=== PATIENT | female | born 1970 | race Caucasian/White ===

== ENCOUNTER 2017-09-26 12:32 | Observation (INO) ==
[2017-09-26] MEDS ORDERED: Nitroglycerin 0.4 MG TAB.SUBL SL ONE (12:33)
[2017-09-26] MEDS ORDERED: 0.9 % Sodium Chloride 500 ML IVC ONE (12:33)
[2017-09-26] MEDS ORDERED: Aspirin 81 MG TAB.CHEW PO ONE (12:33)
--- NOTE | 2017-09-26 12:34 | Emergency Department Note ---
Disposition Clinical Impression: NSTEMI (non-ST elevated myocardial infarction), Elevated troponin Disposition: Admitted As Inpatient Condition: Fair General Adult HPI - General Chief complaint: ED Chest Pain Stated complaint: chest pain Time Seen by Provider: 09/26/17 12:33 - Related Data Home Medications Medication Instructions Recorded Confirmed Albuterol Sulfate [Albuterol 2 puff IH Q4HR PRN 08/22/16 09/26/17 Inhaler] Calcium Carbonate/Vitamin D3 1 tab PO BID 08/22/16 09/26/17 [Oyster Shell Calcium-Vit D Tab] Fluticasone Propionate Nasal 1 spr NS BID PRN 08/22/16 09/26/17 [Flonase] Insulin ASPART [Novolog Flexpen] 5 - 10 unit SQ TID PRN 08/22/16 09/26/17 Multivit-Min/FA/Lycopen/Lutein 1 each PO DAILY 08/22/16 09/26/17 [Centrum Silver Tablet] Paroxetine HCl 10 mg PO QAM 08/22/16 09/26/17 Potassium Chloride 10 meq PO DAILY 08/22/16 09/26/17 SUMAtriptan Succinate [Imitrex] 100 mg PO DAILY PRN 08/22/16 09/26/17 Topiramate [Topamax] 25 mg PO HS 08/22/16 09/26/17 TraZODone 50 mg PO HS 08/22/16 09/26/17 Insulin Glargine,Hum.rec.anlog 18 - 20 unit SQ HS PRN 11/05/16 09/26/17 [Basaglar Kwikpen U-100] Losartan/HCTZ [Hyzaar 50-12.5 1 tab PO DAILY 11/05/16 09/26/17 Tablet] Aspirin 81 mg PO DAILY 07/29/17 09/26/17 Ergocalciferol (VITAMIN D2) 50,000 unit PO WE 07/29/17 09/26/17 [Vitamin D2] Furosemide [Lasix] 20 mg PO BID 07/29/17 09/26/17 Loratadine [Allergy Relief] 10 mg PO DAILY PRN 07/29/17 09/26/17 OxyCODONE/APAP 10/325 [Percocet 1 tab PO TID PRN 07/29/17 09/26/17 10/325 MG] Pantoprazole Sodium 40 mg PO BID 07/29/17 09/26/17 Apixaban [Eliquis] 5 mg PO BID 09/26/17 09/26/17 Allergies Allergy/AdvReac Type Severity Reaction Status Date / Time [place] And Derivatives Allergy Hives Verified 09/26/17 15:49 gabapentin Allergy Swelling Verified 09/26/17 15:49 of Lip/Tongue/Throat hydrocodone Allergy Hives Verified 09/26/17 15:49 levofloxacin [From Levaquin] Allergy Anaphylaxis Verified 09/26/17 15:49 lisinopril Allergy Hives Verified 09/26/17 15:49 propoxyphene Allergy Hives Verified 09/26/17 15:49 [From Darvocet-N] Sulfa (Sulfonamide Allergy Hives Verified 09/26/17 15:49 Antibiotics) duloxetine [From Cymbalta] AdvReac Hallucinati Verified 09/26/17 15:49 ng lactose AdvReac Abdominal Verified 09/26/17 15:49 Pain Past Medical History - Past Medical History Medical history: Reports: diabetes, fibromyalgia, GERD, hypertension Surgical history: Reports: cholecystectomy, hysterectomy Psychiatric history: Reports: anxiety, depression, PTSD - Social History Smoking Status: Never smoker Smokeless Tobacco Status: No Alcohol use: Reports: rarely Drug use: Reports: none Course Vital Signs Temperature 97.6 F 09/26/17 12:34 Pulse Rate 69 09/26/17 12:34 Respiratory Rate 10 09/26/17 12:34 Blood Pressure 122/69 09/26/17 12:34 O2 Sat by Pulse Oximetry 96 09/26/17 12:34 Temperature 97.6 F 09/26/17 12:34 Pulse Rate 67 09/26/17 15:50 Respiratory Rate 14 09/26/17 15:50 Blood Pressure 90/56 09/26/17 15:50 O2 Sat by Pulse Oximetry 94 09/26/17 15:50 Oxygen Delivery Oxygen Delivery Room Air Medical Decision Making - Lab Data Result diagrams: 09/26/17 12:52 09/26/17 12:52 Lab Results 09/26/17 09/26/17 09/26/17 Range/Units 12:52 12:52 12:52 WBC 11.0 (4.3-11.1) K/mcL RBC 4.63 (3.82-4.97) M/mcL Hgb 13.8 (11.5-15.4) g/dL Hct 42.9 (35.3-44.9) % MCV 92.7 (83.0-100.0) fL MCH 29.8 (28.0-33.3) pg MCHC 32.2 (31.6-35.5) g/dL RDW 13.5 (11.5-14.5) % Plt Count 277 (140-400) K/mcL MPV 10.3 (9.4-12.4) fL Immature Gran % 0.5 (0-4) % Seg Neutrophils % 82.7 % Lymphocytes % 11.2 % Monocytes % 4.8 % Eosinophils % 0.3 % Basophils % 0.5 % Neutrophils # 9.1 H (1.6-8.9) K/mcL Lymphocytes # 1.2 (0.6-4.6) K/mcL Monocytes # 0.5 (0.0-1.3) K/mcL Eosinophils # 0.0 (0.0-0.6) K/mcL Basophils # 0.1 (0.0-0.2) K/mcL PT 11.2 (9.4-12.1) Seconds INR 1.0 APTT 29.0 (26.0-36.0) Seconds Sodium 137 (136-145) mEq/L Potassium 4.2 (3.5-5.1) mEq/L Chloride 103 (98-107) mEq/L Carbon Dioxide 29 (23-29) mEq/L BUN 14 (6-20) mg/dL Creatinine 0.74 (0.60-1.20) mg/dL Est GFR ( Amer) > 60 (> 60) Est GFR (Non-Af Amer) > 60 (> 60) BUN/Creatinine Ratio 19 (6-26) Glucose 108 H (70-105) mg/dL Calculated Osmolality 285 (280-300) Calcium 9.1 (8.6-10.3) mg/dL Troponin I (< 0.04) ng/mL 09/26/17 09/26/17 Range/Units 12:52 14:28 WBC (4.3-11.1) K/mcL RBC (3.82-4.97) M/mcL Hgb (11.5-15.4) g/dL Hct (35.3-44.9) % MCV (83.0-100.0) fL MCH (28.0-33.3) pg MCHC (31.6-35.5) g/dL RDW (11.5-14.5) % Plt Count (140-400) K/mcL MPV (9.4-12.4) fL Immature Gran % (0-4) % Seg Neutrophils % % Lymphocytes % % Monocytes % % Eosinophils % % Basophils % % Neutrophils # (1.6-8.9) K/mcL Lymphocytes # (0.6-4.6) K/mcL Monocytes # (0.0-1.3) K/mcL Eosinophils # (0.0-0.6) K/mcL Basophils # (0.0-0.2) K/mcL PT (9.4-12.1) Seconds INR APTT (26.0-36.0) Seconds Sodium (136-145) mEq/L Potassium (3.5-5.1) mEq/L Chloride (98-107) mEq/L Carbon Dioxide (23-29) mEq/L BUN (6-20) mg/dL Creatinine (0.60-1.20) mg/dL Est GFR ( Amer) (> 60) Est GFR (Non-Af Amer) (> 60) BUN/Creatinine Ratio (6-26) Glucose (70-105) mg/dL Calculated Osmolality (280-300) Calcium (8.6-10.3) mg/dL Troponin I < 0.03 0.10 H* (< 0.04) ng/mL Attestation Statement - Attestation Attestation: I examined this patient and my medical decision-making was reviewed with the Resident Physician. I agree with the documented findings, disposition and treatment plan as described except to the extent set forth below. [id number] time provided Patient arrives by EMS from home complaining of nausea, vomiting, diarrhea, chest discomfort. She appears slightly anxious on exam. I discussed the patient's care and management with the resident physician Dr. Artis. ECG reviewed by me upon arrival
[2017-09-26 12:58] LABS: Basophils # 0.1 K/mcL (0.0-0.2); Basophils % 0.5 %; Eosinophils % 0.3 %; Hematocrit 42.9 % (35.3-44.9); Hemoglobin 13.8 g/dL (11.5-15.4); Immature Granulocytes % 0.5 % (0-4); Lymphocytes # 1.2 K/mcL (0.6-4.6); Lymphocytes % 11.2 %; Mean Corpuscular HGB Conc 32.2 g/dL (31.6-35.5); Mean Corpuscular Hemoglobin 29.8 pg (28.0-33.3); Mean Corpuscular Volume 92.7 fL (83.0-100.0); Mean Platelet Volume 10.3 fL (9.4-12.4); Monocytes # 0.5 K/mcL (0.0-1.3); Monocytes % 4.8 %; Neutrophils # 9.1 K/mcL (1.6-8.9); Platelet Count 277 K/mcL (140-400); Red Blood Count 4.63 M/mcL (3.82-4.97); Red Cell Distribution Width 13.5 % (11.5-14.5); Segmented Neutrophils % 82.7 %
[2017-09-26 13:03] LABS: Prothrombin Time 11.2 Seconds (9.4-12.1)
[2017-09-26 13:16] LABS: BUN/Creatinine Ratio 19 (6-26); Blood Urea Nitrogen 14 mg/dL (6-20); Calcium 9.1 mg/dL (8.6-10.3); Carbon Dioxide 29 mEq/L (23-29); Chloride 103 mEq/L (98-107); Glucose 108 mg/dL (70-105); Osmolality,Calculated 285 (280-300); Potassium 4.2 mEq/L (3.5-5.1); Sodium 137 mEq/L (136-145); eGFR For African Americans > 60 (> 60); eGFR For Non-African Americans > 60 (> 60)
--- NOTE | 2017-09-26 13:18 | Emergency Department Note ---
Disposition Clinical Impression: NSTEMI (non-ST elevated myocardial infarction), Elevated troponin Disposition: Admitted As Inpatient Condition: Fair Forms: ED Satisfaction Letter Time of Disposition: 16:41 Chest Pain HPI - General Chief Complaint: ED Chest Pain Stated Complaint: chest pain Time Seen by Provider: 09/26/17 12:33 Source: patient, EMS Mode of arrival: EMS Limitations: no limitations Vital Signs Reviewed: Yes Nursing Notes Reviewed: Yes - History of Present Illness HPI Narrative: 47-year-old female presented to the emergency department complaining of chest pain. She says it is substernal says it is a 5 out of 10 pressure. Says she has never had this pain before. Patient has a history anxiety and says normally the chest pain is due to anxiety. She has never had any cardiac issues. She does have history of diabetes as well as high blood pressure. They said the chest pain started all of a sudden this morning. She has not taken anything for the pain. She did not know she was doing anything when the pain started. Is not worse with exertion. Patient is not having any other complaints including headache, blurry vision, neck pain, back pain, shortness of breath, abdominal pain, change in balance, pain with urination, pain feeling in any arms or legs or generalized weakness or any changes in weight loss. - Related Data Home Medications Medication Instructions Recorded Confirmed Albuterol Sulfate [Albuterol 2 puff IH Q4HR PRN 08/22/16 07/29/17 Inhaler] Calcium Carbonate/Vitamin D3 1 each PO BID 08/22/16 07/29/17 [Oyster Shell Calcium-Vit D Tab] Fluticasone Propionate Nasal 1 spr NS BID PRN 08/22/16 07/29/17 [Flonase] Insulin ASPART [Novolog Flexpen] 5 - 7 unit SQ TID PRN 08/22/16 07/29/17 Multivit-Min/FA/Lycopen/Lutein 1 each PO DAILY 08/22/16 07/29/17 [Centrum Silver Tablet] Paroxetine HCl 10 mg PO QAM 08/22/16 07/29/17 Potassium Chloride 10 meq PO DAILY 08/22/16 07/29/17 SUMAtriptan Succinate [Imitrex] 100 mg PO DAILY PRN 08/22/16 07/29/17 Topiramate [Topamax] 25 mg PO HS 08/22/16 07/29/17 TraZODone 50 mg PO HS 08/22/16 07/29/17 Insulin Glargine,Hum.rec.anlog 0 unit SQ HS PRN 11/05/16 07/29/17 [Basaglar Kwikpen U-100] Losartan/HCTZ [Hyzaar 50-12.5 1 tab PO DAILY 11/05/16 07/29/17 Tablet] Aspirin 81 mg PO DAILY 07/29/17 07/29/17 Ergocalciferol (VITAMIN D2) 50,000 unit PO WE 07/29/17 07/29/17 [Vitamin D2] Furosemide [Lasix] 20 mg PO BID 07/29/17 07/29/17 Loratadine [Allergy Relief] 10 mg PO DAILY PRN 07/29/17 07/29/17 OxyCODONE/APAP 10/325 [Percocet 1 tab PO TID PRN 07/29/17 07/29/17 10/325 MG] Pantoprazole Sodium 40 mg PO BID 07/29/17 07/29/17 Apixaban [Eliquis] 5 mg PO BID 09/26/17 09/26/17 Allergies Allergy/AdvReac Type Severity Reaction Status Date / Time [place] And Derivatives Allergy Hives Verified 09/26/17 15:49 gabapentin Allergy Swelling Verified 09/26/17 15:49 of Lip/Tongue/Throat hydrocodone Allergy Hives Verified 09/26/17 15:49 levofloxacin [From Levaquin] Allergy Anaphylaxis Verified 09/26/17 15:49 lisinopril Allergy Hives Verified 09/26/17 15:49 propoxyphene Allergy Hives Verified 09/26/17 15:49 [From Darvocet-N] Sulfa (Sulfonamide Allergy Hives Verified 09/26/17 15:49 Antibiotics) duloxetine [From Cymbalta] AdvReac Hallucinati Verified 09/26/17 15:49 ng lactose AdvReac Abdominal Verified 09/26/17 15:49 Pain Review of Systems: 10 point review of systems done and negative unless otherwise stated in history of present illness. All systems ED: reviewed and negative except as stated. Review of Systems: As Per HPI Chest Pain PMH - Past Medical History Medical history: Reports: diabetes, fibromyalgia, GERD, hypertension Surgical history: Reports: cholecystectomy, hysterectomy Psychiatric history: Reports: anxiety, depression, PTSD - Social History Smoking Status: Never smoker Alcohol use: Reports: rarely Drug use: Reports: none Physical Exam - General Limitations: no limitations General appearance: alert, in no apparent distress, anxious - Head Head exam: atraumatic, normocephalic, normal inspection - Eye Eye exam: Present: normal appearance, PERRL, EOMI - ENT ENT exam: normal exam, normal oropharynx, mucous membranes moist - Neck Neck exam: Present: normal inspection, full ROM, trachea midline - Chest Chest inspection: Present: normal inspection, symmetric chest wall rise - Respiratory Respiratory exam: Present: normal lung sounds bilaterally. Absent: respiratory distress, wheezes, accessory muscle use - Cardiovascular Cardiovascular exam: Present: regular rate, normal rhythm, normal heart sounds - Abdominal Exam Abdominal exam: Present: soft, Non-Tender. Absent: tenderness, distention, guarding, rebound, rigidity - Extremities Exam Extremities exam: Present: normal inspection, full ROM. Absent: tenderness, pedal edema - Expanded Lower Extremity Exam Neurovascular/Tendon exam: Present: normal capillary refill. Absent: pulse deficit, motor deficit, sensory deficit, tendon deficit - Back Exam Back exam: Present: normal inspection, full ROM. Absent: tenderness, CVA tenderness (R), CVA tenderness (L) - Neurological Exam Neurological exam: Present: alert, oriented X3 - Skin Skin exam: Present: warm, dry, intact, normal color Course Course Narrative: 47-year-old female presents to the emergency with chest pain. We will do normal chest pain workup including CBC, BMP, troponin as well as chest x-ray and EKG. We will give patient nitroglycerin and aspirin. Patient care of this plan. Disposition pending results. Most likely will repeat a troponin. Vital Signs Temperature 97.6 F 09/26/17 12:34 Pulse Rate 69 09/26/17 12:34 Respiratory Rate 10 09/26/17 12:34 Blood Pressure 122/69 09/26/17 12:34 O2 Sat by Pulse Oximetry 96 09/26/17 12:34 Temperature 97.6 F 09/26/17 12:34 Pulse Rate 67 09/26/17 15:50 Respiratory Rate 14 09/26/17 15:50 Blood Pressure 90/56 09/26/17 15:50 O2 Sat by Pulse Oximetry 94 09/26/17 15:50 Oxygen Delivery Oxygen Delivery Room Air Chest Pain - MDM Narrative Medical decision making narrative: 47-year-old female presenting to the emergency department with chest pain. Patient does have risk factors for cardiac disease but has not had any cardiac events recently. She says a muscular chest pain is due to anxiety and she is wondering if that this is very we did do a chest pain workup first troponin came back negative and all her labs came back normal. First EKG had mild changes were she had flattening of T waves and inversion in lead 3. Otherwise there are no other acute changes on EKG. We did do a repeat troponin 2 hours after the original one and this came back positive at 0.10. Due to going outpatient echo he is in an NSTEMI. We did give her low-dose heparin and she was given aspirin and nitroglycerin when she first arrived. Patient tolerated all these well. Due to the NSTEMI we decided to admit to the hospitalist service for further evaluation. Spoke with the hospitalist, Dr. Goetz who agreed to admit the patient to their service. Patient is admitted in stable condition. Chest X-Ray 09/26/17 12:33 IMPRESSION: No acute cardiopulmonary disease. D/ / Gabo Arriaga MD / Gabo Arriaga MD Interpreting Provider: Gabo Arriaga MD - Medical Records Medical records reviewed: Yes I reviewed the patient's medical records. - Lab Data Lab results reviewed: Yes I reviewed the patient's lab results. Result diagrams: 09/26/17 12:52 09/26/17 12:52 Lab Results 09/26/17 09/26/17 09/26/17 Range/Units 12:52 12:52 12:52 WBC 11.0 (4.3-11.1) K/mcL RBC 4.63 (3.82-4.97) M/mcL Hgb 13.8 (11.5-15.4) g/dL Hct 42.9 (35.3-44.9) % MCV 92.7 (83.0-100.0) fL MCH 29.8 (28.0-33.3) pg MCHC 32.2 (31.6-35.5) g/dL RDW 13.5 (11.5-14.5) % Plt Count 277 (140-400) K/mcL MPV 10.3 (9.4-12.4) fL Immature Gran % 0.5 (0-4) % Seg Neutrophils % 82.7 % Lymphocytes % 11.2 % Monocytes % 4.8 % Eosinophils % 0.3 % Basophils % 0.5 % Neutrophils # 9.1 H (1.6-8.9) K/mcL Lymphocytes # 1.2 (0.6-4.6) K/mcL Monocytes # 0.5 (0.0-1.3) K/mcL Eosinophils # 0.0 (0.0-0.6) K/mcL Basophils # 0.1 (0.0-0.2) K/mcL PT 11.2 (9.4-12.1) Seconds INR 1.0 APTT 29.0 (26.0-36.0) Seconds Sodium 137 (136-145) mEq/L Potassium 4.2 (3.5-5.1) mEq/L Chloride 103 (98-107) mEq/L Carbon Dioxide 29 (23-29) mEq/L BUN 14 (6-20) mg/dL Creatinine 0.74 (0.60-1.20) mg/dL Est GFR ( Amer) > 60 (> 60) Est GFR (Non-Af Amer) > 60 (> 60) BUN/Creatinine Ratio 19 (6-26) Glucose 108 H (70-105) mg/dL Calculated Osmolality 285 (280-300) Calcium 9.1 (8.6-10.3) mg/dL Troponin I (< 0.04) ng/mL 09/26/17 09/26/17 Range/Units 12:52 14:28 WBC (4.3-11.1) K/mcL RBC (3.82-4.97) M/mcL Hgb (11.5-15.4) g/dL Hct (35.3-44.9) % MCV (83.0-100.0) fL MCH (28.0-33.3) pg MCHC (31.6-35.5) g/dL RDW (11.5-14.5) % Plt Count (140-400) K/mcL MPV (9.4-12.4) fL Immature Gran % (0-4) % Seg Neutrophils % % Lymphocytes % % Monocytes % % Eosinophils % % Basophils % % Neutrophils # (1.6-8.9) K/mcL Lymphocytes # (0.6-4.6) K/mcL Monocytes # (0.0-1.3) K/mcL Eosinophils # (0.0-0.6) K/mcL Basophils # (0.0-0.2) K/mcL PT (9.4-12.1) Seconds INR APTT (26.0-36.0) Seconds Sodium (136-145) mEq/L Potassium (3.5-5.1) mEq/L Chloride (98-107) mEq/L Carbon Dioxide (23-29) mEq/L BUN (6-20) mg/dL Creatinine (0.60-1.20) mg/dL Est GFR ( Amer) (> 60) Est GFR (Non-Af Amer) (> 60) BUN/Creatinine Ratio (6-26) Glucose (70-105) mg/dL Calculated Osmolality (280-300) Calcium (8.6-10.3) mg/dL Troponin I < 0.03 0.10 H* (< 0.04) ng/mL - Radiology Data Radiology results reviewed: Yes I reviewed the patient's radiology results. - EKG Data EKG attestation: Yes I reviewed and interpreted this EKG. EKG results narrative: EKG #1 done at 1237 review by myself and the attending shows sinus rhythm at a rate of 61, AL 169, QRS 93, QTC 409 with a normal axis. There is no acute ST changes there are flipped T waves in leads 3 and flattening of T waves in all lateral leads. No signs of heart strain or hypertrophy or signs of heart block or WPW/Brugada syndrome. Overall this EKG is unchanged when compared with old 1 and 08/26/17. EKG #2 done at 1527 due to elevated troponin review of myself and the attending shows sinus rhythm at a rate of 63, AL interval 136, QRS 97, QTC 4:30 with a normal axis. There again is no ST changes no new T-wave changes as her* flattening of T waves and inversion in leads 3. Still no heart block or heart strain or hypertrophy or other changes based on old EKG. Heart Score - Score History: Moderately Suspicious EKG: Non Specific repolarisation Disturbance Age: 45-65 Risk Factors: Equal/Greater than 3 risk factor or history of atherosclerotic disease Troponin: 1-3x normal limit HEART Score Total: 6
[2017-09-26] MEDS ORDERED: *HR* Heparin 5,000 UNIT/ML VIAL IVP ONE ×3 (15:26→16:49)
[2017-09-26] MEDS ORDERED: *HR* Heparin 5,000 UNIT/ML VIAL IVP PRN ×5 (15:26→16:49)
[2017-09-26] MEDS ORDERED: Heparin 25,000 UNIT/500 ML D5W 25,000 UNIT/500 ML BAG IVC SCH ×2 (15:30→16:45)
[2017-09-26] MEDS ORDERED: Ondansetron 4 MG/2 ML VIAL IVP PRN (16:41)
[2017-09-26] MEDS ORDERED: Naloxone 0.4 MG/ML INJ IVP PRN (16:41)
[2017-09-26] MEDS ORDERED: Fluticasone Propionate Nasal 50 MCG/SPRAY BOTTLE NS PRN (16:42)
[2017-09-26] MEDS ORDERED: SUMAtriptan succinate 50 MG TABLET PO PRN (16:42)
[2017-09-26] MEDS ORDERED: Loratadine 10 MG TABLET PO PRN (16:42)
[2017-09-26] MEDS ORDERED: Dextrose Gel 15 GM/37.5 ML TUBE PO PRN ×2 (16:44)
[2017-09-26] MEDS ORDERED: D5% in Water 1,000 ML IVC PRN (16:44)
[2017-09-26] MEDS ORDERED: *HR* Dextrose 50 % in Water (Syg) 50 ML SYRINGE IVP PRN (16:44)
[2017-09-26] MEDS: Heparin 25,000 UNIT/500 ML D5W 25,000 UNIT/500 ML BAG IVC SCH (17:15)
--- NOTE | 2017-09-26 17:58 | Internal Med History&Physical ---
Date of Encounter: 09/26/17 Time of Encounter: 17:56 Assessment and Plan (1) NSTEMI (non-ST elevated myocardial infarction) Current visit: Yes Status: Acute Presentation and labs consistent with NSTEMI. EKG shows nonspecific changes. Repeat unchanged. Cycle troponin. Heparin drip started. NPO midnight Cardiology consult - I have a page out to geographic information systems engineer pigs feet finisher at this time to inform him of her case Due to history of DVT in her leg a CTA of her chest has been ordered to r/o PE Add Statin. ASA. (2) DVT (deep venous thrombosis) Current visit: Yes Status: Chronic Diagnosed 08/10/17 and repeat duplex 08/26/17 shows "chronic thrombus" Currently on heparin drip CTA of chest tonight. Qualifiers: DVT location: lower extremity Affected thrombotic vein of extremity: popliteal Chronicity: chronic Laterality: left Qualified Code(s): I82.532 - Chronic embolism and thrombosis of left popliteal vein (3) Diabetes Current visit: No Status: Chronic Pt relates her last A1C was around 5. Accuchecks and insulin ordered. Qualifiers: Diabetes mellitus type: type 2 Diabetes mellitus complication status: with other specified complication Diabetes mellitus correction insulin use: with correction use Qualified Code(s): E11.69 - Type 2 diabetes mellitus with other specified complication; Z79.4 - long term care social worker (current) use of insulin; Z79.4 - long term care social worker (current) use of insulin; Z79.4 - long term care social worker (current) use of insulin; Z79.4 - long term care social worker (current) use of insulin (4) Hypertension Current visit: No Status: Chronic Continue home medications. Qualifiers: Hypertension type: essential hypertension Qualified Code(s): I10 - Essential (primary) hypertension (5) History of post traumatic stress disorder Current visit: No Status: Chronic Continue home meds. (6) Morbid obesity Current visit: No Status: Chronic Chronic issue Internal Medicine - H&P: HPI Admitted From: Emergency Dept Plans for Post Hospital Care: Home History of present illness: Ms. Orosco is a 47 year old female with hx of DM and HTN presented to ED with complaints of substernal chest pressure. Pt stated she awoke about 8AM with "brick on my chest" and pain radiating down R arm. She had some palpitations in her chest and numb and tingling sensation in her R arm. She also felt diaphoretic and nauseous and "funny in the head." She felt like she was going to pass out. Symptoms ultimately resolved on their own. She presented to ED and had work up which showed nonspecific EKG changes and troponin that went < 0.03 to 0.1 in about 2 hours. Currently she is only complaining of a headache she has had all day. No chest pain or discomfort. No dyspnea. She has gastroparesis as well and chronic diarrhea. She also was diagnosed with acute L popliteal DVT on 08/10/17 and has been taking Eliquis BID. She has significant family hx for CAD- father age 67 of cardiac disease which began in his 50s. Mother has cardiac disease that began in early 50s. Multiple family members with DM. Past Med Surg Social Fam HX - Past Medical History Source: patient Medical history: diabetes, fibromyalgia, GERD, hypertension Psychiatric history: anxiety, depression, PTSD - Past Surgical History Surgical History: cholecystectomy, hysterectomy - Social History Smoking Status: Never smoker Smokeless Tobacco Status: No Alcohol use: rarely Drug use: none Current living situation: Home - Independent Activity Level: Independent ambulation Recent Out of Country Travel Within the Last 8 Weeks: No - Family History Mother Living Status: Still Living Hx Family Cardiac Disorders: Yes (Cardiac disease) Hx Family Endocrine Disorder: Yes (Diabetes) Father Living Status: Cause of : Cardiac disease Hx Family Cardiac Disorders: Yes Hx Family Endocrine Disorder: Yes (Diabetes) Internal Medicine - H&P: Meds Albuterol Sulfate [Albuterol Inhaler] 2 puff IH Q4HR PRN 08/22/16 [History] Calcium Carbonate/Vitamin D3 [Oyster Shell Calcium-Vit D Tab] 1 tab PO BID 08/22 [History] Fluticasone Propionate Nasal [Flonase] 1 spr NS BID PRN 08/22/16 [History] Insulin ASPART [Novolog Flexpen] 5 - 10 unit SQ TID PRN 08/22/16 [History] Multivit-Min/FA/Lycopen/Lutein [Centrum Silver Tablet] 1 each PO DAILY 08/22/16 [History] Paroxetine HCl 10 mg PO QAM 08/22/16 [History] Potassium Chloride 10 meq PO DAILY 08/22/16 [History] SUMAtriptan Succinate [Imitrex] 100 mg PO DAILY PRN 08/22/16 [History] Topiramate [Topamax] 25 mg PO HS 08/22/16 [History] TraZODone 50 mg PO HS 08/22/16 [History] Insulin Glargine,Hum.rec.anlog [Basaglar Kwikpen U-100] 18 - 20 unit SQ HS PRN 11/05/16 [History] Losartan/HCTZ [Hyzaar 50-12.5 Tablet] 1 tab PO DAILY 11/05/16 [History] Aspirin 81 mg PO DAILY 07/29/17 [History] Ergocalciferol (VITAMIN D2) [Vitamin D2] 50,000 unit PO WE 07/29/17 [History] Furosemide [Lasix] 20 mg PO BID 07/29/17 [History] Loratadine [Allergy Relief] 10 mg PO DAILY PRN 07/29/17 [History] OxyCODONE/APAP 10/325 [Percocet 10/325 MG] 1 tab PO TID PRN 07/29/17 [History] Pantoprazole Sodium 40 mg PO BID 07/29/17 [History] Apixaban [Eliquis] 5 mg PO BID 09/26/17 [History] 3 Allergy/AdvReac Type Severity Reaction Status Date / Time [place] And Derivatives Allergy Hives Verified 09/26/17 15:49 gabapentin Allergy Swelling Verified 09/26/17 15:49 of Lip/Tongue/Throat hydrocodone Allergy Hives Verified 09/26/17 15:49 levofloxacin [From Levaquin] Allergy Anaphylaxis Verified 09/26/17 15:49 lisinopril Allergy Hives Verified 09/26/17 15:49 propoxyphene Allergy Hives Verified 09/26/17 15:49 [From Darvocet-N] Sulfa (Sulfonamide Allergy Hives Verified 09/26/17 15:49 Antibiotics) duloxetine [From Cymbalta] AdvReac Hallucinati Verified 09/26/17 15:49 ng lactose AdvReac Abdominal Verified 09/26/17 15:49 Pain All Systems PM: A 10-system review of systems was performed and is negative for pertinent findings except as documented above in the HPI. - Constitutional Constitutional: fatigue - EENT Eyes: no blurry vision, no loss of vision, no pain Ears: no decreased hearing Nose, mouth and throat: no dry mouth, no mouth pain, no nasal congestion - Cardiovascular Cardiovascular ROS IM: chest pain, diaphoresis, dyspnea, edema, palpitations - Respiratory Respiratory: dyspnea, no cough, no dyspnea on exertion, no wheezing, no chest congestion - Gastrointestinal Gastrointestinal: diarrhea, heartburn Additional comments: gastroparesis - Genitourinary Genitourinary: no difficulty urinating, no hematuria, no urinary frequency, no urinary urgency - Musculoskeletal Musculoskeletal ROS IM: joint swelling, limited range of motion - Integumentary Integumentary IM: no erythema, no rash - Neurological Neurological ROS: confusion (Today with episode), dizziness, headache(s), no abnormal hearing - Psychiatric Psychiatric: anxiety, depression - Endocrine Endocrine IM: no cold intolerance, no heat intolerance - Hematologic/Lymphatic Hematologic/Lymphatic: no easy bleeding - Allergic/Immunologic Allergic/Immunologic: no itchy eyes - Constitutional Vitals: Temp Pulse Resp BP Pulse Ox 97.6 F 67 16 123/70 94 09/26/17 12:34 09/26/17 15:50 09/26/17 17:24 09/26/17 17:24 09/26/17 15:50 General appearance: Present: A&O X 3, pleasant, answers questions appropriately - Head Head exam: Present: atraumatic, normocephalic - Eye Eye exam: Present: EOMI, conjuntiva pink Pupils: Present: PERRL - ENT ENT exam: Present: mucous membranes moist, normal exam - Respiratory Respiratory exam: Present: CTAB. Absent: rales, rhonchi, wheezes - Cardiovascular Cardiovascular exam: Present: RRR. Absent: systolic murmur, tachycardia - GI/Abdominal GI/Abdominal exam: Present: normal bowel sounds, soft. Absent: mass, tenderness - Extremities Exam Extremities exam: Present: tenderness, warm Additional comments: Trace edema R. Edema LLE c/w prior DVT. - Neurological Exam Neurological exam: Present: alert, oriented X3, no focal deficits - Psychiatric Psychiatric exam: Present: flat affect - Skin Skin exam: Present: dry, warm. Absent: rash Internal Med - H&P Results - Labs CBC & Chem 7: 09/26/17 12:52 09/26/17 12:52
[2017-09-26] MEDS: Insulin LISPRO 300 UNITS/3 ML VIAL SQ SCH ×2 (20:12→21:44)
[2017-09-26] MEDS ORDERED: NON-FORMULARY MEDICATION 1 EACH EACH (Calcium Carbonate/Vitamin D3 [Oyster Shell Calcium-V PO SCH (21:00)
[2017-09-26] MEDS: Topiramate 25 MG TABLET PO SCH (21:42)
[2017-09-26] MEDS: Furosemide 20 MG TABLET PO SCH (21:42)
[2017-09-26] MEDS: traZODone 50 MG TABLET PO SCH (21:42)
[2017-09-26] MEDS: Cholecalciferol (D-3) 1,000 UNIT TABLET PO SCH (21:43)
[2017-09-26] MEDS: *HR* OxyCODONE/APAP 10/325 TABLET PO PRN (21:44)
[2017-09-26] MEDS: Insulin DETEMIR 100 UNIT/ML X5UNITS SQ SCH (21:44)
[2017-09-27] MEDS: *HR* Heparin 5,000 UNIT/ML VIAL IVP PRN (01:31)
[2017-09-27 03:57] LABS: Hemoglobin A1C 4.9 %
[2017-09-27 04:07] LABS: Chol/HDL Ratio 4.1 (0-4.9)
[2017-09-27 04:09] LABS: BUN/Creatinine Ratio 17 (6-26); Blood Urea Nitrogen 14 mg/dL (6-20); Calcium 8.9 mg/dL (8.6-10.3); Carbon Dioxide 30 mEq/L (23-29); Chloride 102 mEq/L (98-107); Glucose 104 mg/dL (70-105); Osmolality,Calculated 287 (280-300); Potassium 3.5 mEq/L (3.5-5.1); Sodium 138 mEq/L (136-145); eGFR For African Americans > 60 (> 60); eGFR For Non-African Americans > 60 (> 60)
[2017-09-27 04:17] LABS: Basophils # 0.1 K/mcL (0.0-0.2); Basophils % 0.5 %; Eosinophils # 0.1 K/mcL (0.0-0.6); Eosinophils % 1.2 %; Hematocrit 39.6 % (35.3-44.9); Hemoglobin 12.7 g/dL (11.5-15.4); Immature Granulocytes % 0.6 % (0-4); Lymphocytes % 28.6 %; Mean Corpuscular HGB Conc 32.1 g/dL (31.6-35.5); Mean Corpuscular Hemoglobin 29.7 pg (28.0-33.3); Mean Corpuscular Volume 92.5 fL (83.0-100.0); Mean Platelet Volume 11.1 fL (9.4-12.4); Monocytes # 0.8 K/mcL (0.0-1.3); Monocytes % 7.6 %; Neutrophils # 6.5 K/mcL (1.6-8.9); Platelet Count 280 K/mcL (140-400); Red Blood Count 4.28 M/mcL (3.82-4.97); Red Cell Distribution Width 13.6 % (11.5-14.5); Segmented Neutrophils % 61.5 %
[2017-09-27] MEDS: *HR* OxyCODONE/APAP 10/325 TABLET PO PRN ×2 (06:03→16:32)
[2017-09-27] MEDS ORDERED: Perflutren Lipid Microsphere 1.3 ML in 0.9 % Sodium Chloride 8.7 ML IVP ONE (08:00)
[2017-09-27] MEDS ORDERED: Perflutren Lipid Microsphere 2 ML VIAL ONE (08:04)
[2017-09-27] MEDS: Insulin LISPRO 300 UNITS/3 ML VIAL SQ SCH ×7 (08:16→22:33)
[2017-09-27] MEDS: Multivit/Ca/Min/Fe/FA 1 TAB TABLET PO SCH (09:35)
[2017-09-27] MEDS: Furosemide 20 MG TABLET PO SCH ×2 (09:35→16:38)
[2017-09-27] MEDS: Losartan/HCTZ 50-12.5 TABLET PO SCH (09:35)
[2017-09-27] MEDS: Cholecalciferol (D-3) 1,000 UNIT TABLET PO SCH (09:35)
[2017-09-27] MEDS: Aspirin 81 MG TAB.CHEW PO SCH (09:36)
[2017-09-27] MEDS: Acetaminophen/Butalbital/CaffeineTABLET PO PRN ×2 (10:04→22:32)
--- NOTE | 2017-09-27 10:14 | Internal Med Progress Note ---
Date of Encounter: 09/27/17 Time of Encounter: 10:05 - Assessment and plan (1) NSTEMI (non-ST elevated myocardial infarction) Current Visit: Yes Status: Acute Assessment and plan: Pt presented to ED with chest heaviness. Initial trop neg then slight increase and back to negative EKG with nonspecific changes CTA neg for PE Currently on heparin drip that we will continue at this time (recent DVT, on Eliquis but will hold for any intervention) Stress test tomorrow. (2) DVT (deep venous thrombosis) Current Visit: Yes Status: Chronic Assessment and plan: Pt with popliteal DVT diagnosed early July. Currently on heparin drip Will restart Eliquis at discharge Qualifiers: DVT location: lower extremity Affected thrombotic vein of extremity: popliteal Chronicity: chronic Laterality: left Qualified Code(s): I82.532 - Chronic embolism and thrombosis of left popliteal vein (3) Diabetes Current Visit: No Status: Chronic Assessment and plan: Monitoring blood sugars and covering. Qualifiers: Diabetes mellitus type: type 2 Diabetes mellitus complication status: with other specified complication Diabetes mellitus supervisor intermediates insulin use: with supervisor intermediates use Qualified Code(s): E11.69 - Type 2 diabetes mellitus with other specified complication; Z79.4 - terminal block assembler (current) use of insulin; Z79.4 - intermediate (current) use of insulin; Z79.4 - terminal block assembler (current) use of insulin; Z79.4 - terminal block assembler (current) use of insulin (4) Hypertension Current Visit: No Status: Chronic Assessment and plan: Continue meds. Hold beta jareth for stress test tomorrow. Qualifiers: Hypertension type: essential hypertension Qualified Code(s): I10 - Essential (primary) hypertension (5) History of post traumatic stress disorder Current Visit: No Status: Chronic Assessment and plan: Chronic issue (6) Morbid obesity Current Visit: No Status: Chronic Assessment and plan: Chronic issue - Subjective Interval history: Ms Orosco is currently admitted for probable NSTEMI. She remains moderate to high risk due to potential for worsening clinical status. Ms Orosco feels OK except for headache. No fever. No further CP or SOB. CTA negative for PE. - Constitutional Vitals: Temp Pulse Resp BP Pulse Ox 97.5 F L 65 18 94/58 98 09/27/17 07:18 09/27/17 07:18 09/27/17 07:18 09/27/17 07:18 09/27/17 10:08 General appearance: Present: A&O X 3, pleasant, answers questions appropriately - Head Head exam: Present: atraumatic, normocephalic - Eye Eye exam: Present: EOMI, conjuntiva pink - ENT ENT exam: Present: mucous membranes moist - Respiratory Respiratory exam: Present: CTAB. Absent: rales, rhonchi, wheezes - Cardiovascular Cardiovascular exam: Present: RRR. Absent: systolic murmur, tachycardia - GI/Abdominal GI/Abdominal exam: Present: normal bowel sounds, soft. Absent: mass, tenderness - Extremities Exam Extremities exam: Present: pedal edema, warm. Absent: tenderness - Neurological Exam Neurological exam: Present: alert, oriented X3, no focal deficits - Skin Skin exam: Present: dry, warm. Absent: rash Internal Medicine: Result - Labs CBC & Chem 7: 09/27/17 02:54 09/27/17 02:54 Labs: Short CBC 09/27/17 Range/Units 02:54 WBC 10.6 (4.3-11.1) K/mcL Hgb 12.7 (11.5-15.4) g/dL Hct 39.6 (35.3-44.9) % Plt Count 280 (140-400) K/mcL Neutrophils # 6.5 (1.6-8.9) K/mcL BMP 09/27/17 02:54 Sodium 138 Potassium 3.5 Chloride 102 Carbon Dioxide 30 H BUN 14 Creatinine 0.84 Glucose 104 Calcium 8.9 Cardiac Enzymes 09/26/17 09/27/17 Range/Units 20:28 02:54 Troponin I < 0.03 < 0.03 (< 0.04) ng/mL - ABG Interpretation ABG results: PT/INR, D-dimer PT 11.2 Seconds (9.4-12.1) 09/26/17 12:52 - Impressions Impressions Chest CTA 09/26/17 18:18 IMPRESSION: No evidence of pulmonary embolism or acute pulmonary abnormality. D/ / Maxime Renee MD / Maxime Renee MD Interpreting Provider: Maxime Renee MD Consult Discharge Plan - Plan Referrals: Pedro Luis Denson MD [Primary Care Provider] -
[2017-09-27] MEDS: Heparin 25,000 UNIT/500 ML D5W 25,000 UNIT/500 ML BAG IVC SCH (12:27)
[2017-09-27] MEDS: Topiramate 25 MG TABLET PO SCH (22:32)
[2017-09-27] MEDS: traZODone 50 MG TABLET PO SCH (22:32)
[2017-09-27] MEDS: Insulin DETEMIR 100 UNIT/ML X5UNITS SQ SCH (22:34)
[2017-09-28 03:52] LABS: Hematocrit 39.3 % (35.3-44.9); Hemoglobin 12.7 g/dL (11.5-15.4); Mean Corpuscular HGB Conc 32.3 g/dL (31.6-35.5); Mean Corpuscular Hemoglobin 29.9 pg (28.0-33.3); Mean Corpuscular Volume 92.5 fL (83.0-100.0); Mean Platelet Volume 10.9 fL (9.4-12.4); Platelet Count 252 K/mcL (140-400); Red Blood Count 4.25 M/mcL (3.82-4.97); Red Cell Distribution Width 13.7 % (11.5-14.5)
[2017-09-28 05:14] LABS: BUN/Creatinine Ratio 16 (6-26); Blood Urea Nitrogen 15 mg/dL (6-20); Calcium 8.6 mg/dL (8.6-10.3); Carbon Dioxide 31 mEq/L (23-29); Chloride 100 mEq/L (98-107); Glucose 110 mg/dL (70-105); Osmolality,Calculated 287 (280-300); Potassium 3.5 mEq/L (3.5-5.1); Sodium 138 mEq/L (136-145); eGFR For African Americans > 60 (> 60); eGFR For Non-African Americans > 60 (> 60)
[2017-09-28] MEDS ORDERED: Regadenoson 0.4 MG/5 ML SYRINGE IVP ONE (06:34)
[2017-09-28] MEDS: Losartan/HCTZ 50-12.5 TABLET PO SCH (10:28)
[2017-09-28] MEDS: Cholecalciferol (D-3) 1,000 UNIT TABLET PO SCH (10:28)
[2017-09-28] MEDS: Multivit/Ca/Min/Fe/FA 1 TAB TABLET PO SCH (10:28)
[2017-09-28] MEDS: Furosemide 20 MG TABLET PO SCH ×2 (10:28→17:46)
[2017-09-28] MEDS: Aspirin 81 MG TAB.CHEW PO SCH (10:29)
[2017-09-28] MEDS: Insulin LISPRO 300 UNITS/3 ML VIAL SQ SCH ×7 (10:31→22:47)
--- NOTE | 2017-09-28 11:32 | Discharge Summary ---
Date of Encounter: 09/28/17 Time of Encounter: 11:31 - Discharge Medications Home Medications: Albuterol Sulfate [Albuterol Inhaler] 2 puff IH Q4HR PRN 08/22/16 [History] Calcium Carbonate/Vitamin D3 [Oyster Shell Calcium-Vit D Tab] 1 tab PO BID 08/22 [History] Fluticasone Propionate Nasal [Flonase] 1 spr NS BID PRN 08/22/16 [History] Insulin ASPART [Novolog Flexpen] 5 - 10 unit SQ TID PRN 08/22/16 [History] Multivit-Min/FA/Lycopen/Lutein [Centrum Silver Tablet] 1 each PO DAILY 08/22/16 [History] Paroxetine HCl 10 mg PO QAM 08/22/16 [History] Potassium Chloride 10 meq PO DAILY 08/22/16 [History] SUMAtriptan Succinate [Imitrex] 100 mg PO DAILY PRN 08/22/16 [History] Topiramate [Topamax] 25 mg PO HS 08/22/16 [History] TraZODone 50 mg PO HS 08/22/16 [History] Insulin Glargine,Hum.rec.anlog [Basaglar Kwikpen U-100] 18 - 20 unit SQ HS PRN 11/05/16 [History] Losartan/HCTZ [Hyzaar 50-12.5 Tablet] 1 tab PO DAILY 11/05/16 [History] Aspirin 81 mg PO DAILY 07/29/17 [History] Ergocalciferol (VITAMIN D2) [Vitamin D2] 50,000 unit PO WE 07/29/17 [History] Furosemide [Lasix] 20 mg PO BID 07/29/17 [History] Loratadine [Allergy Relief] 10 mg PO DAILY PRN 07/29/17 [History] OxyCODONE/APAP 10/325 [Percocet 10/325 MG] 1 tab PO TID PRN 07/29/17 [History] Pantoprazole Sodium 40 mg PO BID 07/29/17 [History] Apixaban [Eliquis] 5 mg PO BID 09/26/17 [History] Allergies/Adverse Reactions: 3 Allergy/AdvReac Type Severity Reaction Status Date / Time [place] And Derivatives Allergy Hives Verified 09/26/17 15:49 gabapentin Allergy Swelling Verified 09/26/17 15:49 of Lip/Tongue/Throat hydrocodone Allergy Hives Verified 09/26/17 15:49 levofloxacin [From Levaquin] Allergy Anaphylaxis Verified 09/26/17 15:49 lisinopril Allergy Hives Verified 09/26/17 15:49 propoxyphene Allergy Hives Verified 09/26/17 15:49 [From Darvocet-N] Sulfa (Sulfonamide Allergy Hives Verified 09/26/17 15:49 Antibiotics) duloxetine [From Cymbalta] AdvReac Hallucinati Verified 09/26/17 15:49 ng lactose AdvReac Abdominal Verified 09/26/17 15:49 Pain Procedures/tests Complete & Pending: Procedures Performed prior 72 hours Category Date Time Status CTA chest [CT angio chest] [CT] Routine Cat Scan 09/26/17 18:18 Completed NM carl perf SPECT multi [NM] Routine Exams 09/27/17 12:02 Taken EV echocardiogram w enhance Stat Y 09/26/17 16:47 Completed SP pharm nuclear stress Routine Y 09/28/17 00:01 Completed Date of admission: 09/26/17 16:46 Primary care physician: Pedro Luis Denson MD - Patient Status Disposition: Home, Self-Care Condition: Fair - Discharge Instructions Follow Up With: Pedro Luis Denson MD [Primary Care Provider] - Hospital course: Ms. Orosco is a 47 year old female - Time Spent with Patient Total time spent providing and/or coordinating discharge services: - Constitutional Vitals: Temp Pulse Resp BP Pulse Ox 97.6 F 70 14 130/86 98 09/28/17 09:26 09/28/17 09:26 09/28/17 09:26 09/28/17 09:26 09/28/17 09:26 General appearance: Present: A&O X 3, pleasant, answers questions appropriately - VTE Documentation of Mechanical Device: Graduated compression elastic hosiery
[2017-09-28] MEDS: Heparin 25,000 UNIT/500 ML D5W 25,000 UNIT/500 ML BAG IVC SCH (11:46)
--- NOTE | 2017-09-28 16:47 | Internal Med Progress Note ---
<Minh Nunez - Last Filed: 09/28/17 16:45> Date of Encounter: 09/28/17 Time of Encounter: 16:45 - Assessment and plan (1) NSTEMI (non-ST elevated myocardial infarction) Current Visit: Yes Status: Acute Assessment and plan: Patient stable today. Tolerated first part of stress test today. Initial trop neg then slight increase and back to negative. EKG with nonspecific changes CTA neg for PE Currently on heparin drip that we will continue at this time (recent DVT, on Eliquis but will hold for any intervention) Awaiting second part of Stress test tomorrow. (2) Hypertension Current Visit: No Status: Chronic Assessment and plan: Continue meds. Hold beta jareth for stress test tomorrow. Qualifiers: Hypertension type: essential hypertension Qualified Code(s): I10 - Essential (primary) hypertension (3) Diabetes Current Visit: No Status: Chronic Assessment and plan: Type II diabetics, current glucose is well controlled. Continue to monitor Qualifiers: Diabetes mellitus type: type 2 Diabetes mellitus complication status: with other specified complication Diabetes mellitus technical buyer insulin use: with technical buyer use Qualified Code(s): E11.69 - Type 2 diabetes mellitus with other specified complication; Z79.4 - [facility] (current) use of insulin; Z79.4 - breaker boss (current) use of insulin; Z79.4 - breaker boss (current) use of insulin; Z79.4 - breaker boss (current) use of insulin (4) Morbid obesity Current Visit: No Status: Chronic Assessment and plan: Chronic issue (5) DVT (deep venous thrombosis) Current Visit: Yes Status: Chronic Assessment and plan: Pt with popliteal DVT diagnosed early July. Currently on heparin drip for possible intervention with [facility] if necessary. Will restart Eliquis at discharge Qualifiers: DVT location: lower extremity Affected thrombotic vein of extremity: popliteal Chronicity: chronic Laterality: left Qualified Code(s): I82.532 - Chronic embolism and thrombosis of left popliteal vein - Subjective Interval history: Ms. Orosco has been seen and evaluated this morning. She had completed her stress test, without any chest pain or discomforts. She does complain of some achiness. In discussion regarding her previous medical history she has had multiple left knee surgeries and has limited mobility on. She has difficulty getting up and has to transfer to the commode at bedside. She denies any nausea , vomiting, diarrhea or constipation. - Constitutional Vitals: Temp Pulse Resp BP Pulse Ox 97.8 F 73 14 130/76 93 09/28/17 16:11 09/28/17 16:11 09/28/17 16:11 09/28/17 16:11 09/28/17 16:11 General appearance: Present: A&O X 3, pleasant, answers questions appropriately Exam: General: Patient alert, awake, oriented 3, interactive, in no acute distress HEENT: Normocephalic, atraumatic, pupils equal reactive to light, nasal cavity patent and open septum median position, oral mucosa moist, neck supple trachea midline no palpable lymphadenopathy, no thyromegaly. Chest: Symmetric bilateral correlating with respiratory effort, effort nonlabored. Cardiac: Regular rate and rhythm, positive S1 and S2. no bruits appreciated bilateral carotids, Radial pulses 2+ bilateral, posterior tibial and dorsal pedal pulses 2+ bilateral. Respiratory: Clear to auscultation all lung branham Abdomen: Soft, nontender, positive bowel sounds, no palpable masses appreciated on examination Extremities: Symmetric bilateral, bilateral lower extremities without erythema or edema patient moving all 4 extremities spontaneously. Neurologic: No focal deficits appreciated on examination. Face symmetric, muscle strength symmetric bilateral upper and lower extremities. Internal Medicine: Result - Labs CBC & Chem 7: 09/28/17 03:25 09/28/17 03:25 Labs: Short CBC 09/28/17 Range/Units 03:25 WBC 8.6 (4.3-11.1) K/mcL Hgb 12.7 (11.5-15.4) g/dL Hct 39.3 (35.3-44.9) % Plt Count 252 (140-400) K/mcL [facility] 09/28/17 03:25 Sodium 138 Potassium 3.5 Chloride 100 Carbon Dioxide 31 H BUN 15 Creatinine 0.93 Glucose 110 H Calcium 8.6 - ABG Interpretation ABG results: PT/INR, D-dimer PT 11.2 Seconds (9.4-12.1) 09/26/17 12:52 - Impressions Impressions Echocardiogram 09/26/17 16:47 Impressions: LVEF 55-60%. Indeterminate diastolic function. Definity echo contrast was used. Normal right ventricular structure and function. Mild mitral regurgitation. Mild tricuspid regurgitation. No pulmonary hypertension. Left Ventricular Wall Motion: Rest Echo Findings All wall segments showed normal motion. Findings: Study Quality * Technically adequate exam. ECG Findings * Normal sinus rhythm. Left Ventricle * LVEF 55-60%. * Normal LV chamber size, wall thickness and function. * Indeterminate diastolic function. * Definity echo contrast was used. Right Ventricle * Normal right ventricular structure and function. Left Atrium * Left atrium is not well visualized. Right Atrium * Right atrium is not well visualized. Aortic Valve * No aortic regurgitation. * Aortic valve not well visualized. * No aortic stenosis. Mitral Valve * No mitral stenosis. * Mild mitral regurgitation. * Normal mitral valve structure. Tricuspid Valve * Tricuspid valve not well visualized. * Mild tricuspid regurgitation. * Estimated RA pressure is 3 mmHg. * Estimated RVSP is 22 mmHg. * No pulmonary hypertension. Pulmonic Valve * Pulmonic valve is not well visualized. * No pulmonic stenosis. * No pulmonic regurgitation. Pulmonary Artery * Pulmonary artery not well visualized. Aorta * Not well visualized. Pericardium * There is no pericardial effusion present. Interatrial Septum * No evidence of PFO by color Doppler. IVC * Normal IVC dimensions and inspiratory collapse. Consult Discharge Plan - Plan Referrals: Pedro Luis Denson MD [Primary Care Provider] - <Chris Ayon - Last Filed: 09/28/17 19:13> Date of Encounter: 09/28/17 - Assessment and plan (1) NSTEMI (non-ST elevated myocardial infarction) Current Visit: Yes Status: Suspected (2) DVT (deep venous thrombosis) Current Visit: Yes Status: Chronic Qualifiers: DVT location: lower extremity Affected thrombotic vein of extremity: popliteal Chronicity: chronic Laterality: left Qualified Code(s): I82.532 - Chronic embolism and thrombosis of left popliteal vein (3) Diabetes Current Visit: No Status: Chronic Qualifiers: Diabetes mellitus type: type 2 Diabetes mellitus complication status: with other specified complication Diabetes mellitus usp insulin use: with technical buyer use Qualified Code(s): E11.69 - Type 2 diabetes mellitus with other specified complication; Z79.4 - [facility] (current) use of insulin; Z79.4 - breaker boss (current) use of insulin; Z79.4 - [facility] (current) use of insulin; Z79.4 - [facility] (current) use of insulin (4) Hypertension Current Visit: No Status: Chronic Qualifiers: Hypertension type: essential hypertension Qualified Code(s): I10 - Essential (primary) hypertension (5) History of post traumatic stress disorder Current Visit: No Status: Chronic (6) Morbid obesity Current Visit: No Status: Chronic - Constitutional Vitals: Temp Pulse Resp BP Pulse Ox 97.8 F 73 14 130/76 93 09/28/17 16:11 09/28/17 16:11 09/28/17 16:11 09/28/17 16:11 09/28/17 16:11 Internal Medicine: Result - Labs CBC & Chem 7: 09/28/17 03:25 09/28/17 03:25 Labs: Short CBC 09/28/17 Range/Units 03:25 WBC 8.6 (4.3-11.1) K/mcL Hgb 12.7 (11.5-15.4) g/dL Hct 39.3 (35.3-44.9) % Plt Count 252 (140-400) K/mcL [facility] 09/28/17 03:25 Sodium 138 Potassium 3.5 Chloride 100 Carbon Dioxide 31 H BUN 15 Creatinine 0.93 Glucose 110 H Calcium 8.6 - ABG Interpretation ABG results: PT/INR, D-dimer PT 11.2 Seconds (9.4-12.1) 09/26/17 12:52 - Impressions Impressions Echocardiogram 09/26/17 16:47 Impressions: LVEF 55-60%. Indeterminate diastolic function. Definity echo contrast was used. Normal right ventricular structure and function. Mild mitral regurgitation. Mild tricuspid regurgitation. No pulmonary hypertension. Left Ventricular Wall Motion: Rest Echo Findings All wall segments showed normal motion. Findings: Study Quality * Technically adequate exam. ECG Findings * Normal sinus rhythm. Left Ventricle * LVEF 55-60%. * Normal LV chamber size, wall thickness and function. * Indeterminate diastolic function. * Definity echo contrast was used. Right Ventricle * Normal right ventricular structure and function. Left Atrium * Left atrium is not well visualized. Right Atrium * Right atrium is not well visualized. Aortic Valve * No aortic regurgitation. * Aortic valve not well visualized. * No aortic stenosis. Mitral Valve * No mitral stenosis. * Mild mitral regurgitation. * Normal mitral valve structure. Tricuspid Valve * Tricuspid valve not well visualized. * Mild tricuspid regurgitation. * Estimated RA pressure is 3 mmHg. * Estimated RVSP is 22 mmHg. * No pulmonary hypertension. Pulmonic Valve * Pulmonic valve is not well visualized. * No pulmonic stenosis. * No pulmonic regurgitation. Pulmonary Artery * Pulmonary artery not well visualized. Aorta * Not well visualized. Pericardium * There is no pericardial effusion present. Interatrial Septum * No evidence of PFO by color Doppler. IVC * Normal IVC dimensions and inspiratory collapse. - Attending Attestation I examined this patient and my medical decision-making was reviewed with the Resident Physician on 09/28/17. I agree with the documented findings, disposition and treatment plan as described except to the extent set forth below. Ms Orosco is currently in observation for chest pain. Ms Orosco feels OK. She had first part of stress test today. Completes it tomorrow. No further CP. Exam alert. Comfortable Mucus membranes dry Heart reg No wheeze I/P 1. CP 2. DVT Further diagnoses and plan as above.
[2017-09-28] MEDS: *HR* Heparin 5,000 UNIT/ML VIAL IVP PRN (18:31)
[2017-09-28] MEDS: Topiramate 25 MG TABLET PO SCH (22:46)
[2017-09-28] MEDS: traZODone 50 MG TABLET PO SCH (22:46)
[2017-09-28] MEDS: Insulin DETEMIR 100 UNIT/ML X5UNITS SQ SCH (22:46)
[2017-09-29] MEDS: *HR* OxyCODONE/APAP 10/325 TABLET PO PRN (04:28)
[2017-09-29 04:58] LABS: Basophils % 0.4 %; Eosinophils # 0.2 K/mcL (0.0-0.6); Hematocrit 42.6 % (35.3-44.9); Hemoglobin 13.9 g/dL (11.5-15.4); Immature Granulocytes % 0.5 % (0-4); Lymphocytes # 2.3 K/mcL (0.6-4.6); Lymphocytes % 23.1 %; Mean Corpuscular HGB Conc 32.6 g/dL (31.6-35.5); Mean Corpuscular Hemoglobin 29.8 pg (28.0-33.3); Mean Corpuscular Volume 91.2 fL (83.0-100.0); Mean Platelet Volume 11.2 fL (9.4-12.4); Monocytes # 0.7 K/mcL (0.0-1.3); Monocytes % 7.5 %; Neutrophils # 6.5 K/mcL (1.6-8.9); Platelet Count 272 K/mcL (140-400); Red Blood Count 4.67 M/mcL (3.82-4.97); Red Cell Distribution Width 13.6 % (11.5-14.5); Segmented Neutrophils % 66.5 %
[2017-09-29 05:23] LABS: Alanine Aminotransferase 8 Units/L (7-52); Albumin 3.7 g/dL (3.5-5.7); Albumin/Globulin Ratio 1.3 (1.1-2.2); Alkaline Phosphatase 78 Units/L (34-104); Aspartate Amino Transferase 13 Units/L (13-39); BUN/Creatinine Ratio 21 (6-26); Bilirubin,Total 0.4 mg/dL (0.3-1.0); Blood Urea Nitrogen 17 mg/dL (6-20); Calcium 9.1 mg/dL (8.6-10.3); Carbon Dioxide 29 mEq/L (23-29); Chloride 101 mEq/L (98-107); Globulin 2.9 g/dL (2.4-3.5); Glucose 102 mg/dL (70-105); Osmolality,Calculated 286 (280-300); Potassium 3.8 mEq/L (3.5-5.1); Sodium 137 mEq/L (136-145); Total Protein 6.6 g/dL (6.4-8.9); eGFR For African Americans > 60 (> 60); eGFR For Non-African Americans > 60 (> 60)
[2017-09-29] MEDS: Heparin 25,000 UNIT/500 ML D5W 25,000 UNIT/500 ML BAG IVC SCH (06:02)
--- NOTE | 2017-09-29 08:11 | Internal Med Progress Note ---
Date of Encounter: 09/29/17 Time of Encounter: 08:10 - Assessment and plan (1) NSTEMI (non-ST elevated myocardial infarction) Current Visit: Yes Status: Suspected Assessment and plan: Patient stable today. Tolerated first part of stress test today. Initial trop neg then slight increase and back to negative. EKG with nonspecific changes CTA neg for PE Currently on heparin drip that we will continue at this time (recent DVT, on Eliquis but will hold for any intervention) Awaiting second part of Stress test tomorrow. (2) Hypertension Current Visit: No Status: Chronic Assessment and plan: Continue meds. Hold beta jareth for stress test tomorrow. Qualifiers: Hypertension type: essential hypertension Qualified Code(s): I10 - Essential (primary) hypertension (3) Diabetes Current Visit: No Status: Chronic Assessment and plan: Type II diabetics, current glucose is well controlled. Continue to monitor Qualifiers: Diabetes mellitus type: type 2 Diabetes mellitus complication status: with other specified complication Diabetes mellitus skilled nursing insulin use: with termite treater use Qualified Code(s): E11.69 - Type 2 diabetes mellitus with other specified complication; Z79.4 - termite treater (current) use of insulin; Z79.4 - termite treater (current) use of insulin; Z79.4 - termite treater (current) use of insulin; Z79.4 - [facility] (current) use of insulin (4) Morbid obesity Current Visit: No Status: Chronic Assessment and plan: Chronic issue (5) DVT (deep venous thrombosis) Current Visit: Yes Status: Chronic Assessment and plan: Pt with popliteal DVT diagnosed early July. Currently on heparin drip for possible intervention with [facility] if necessary. Will restart Eliquis at discharge Qualifiers: DVT location: lower extremity Affected thrombotic vein of extremity: popliteal Chronicity: chronic Laterality: left Qualified Code(s): I82.532 - Chronic embolism and thrombosis of left popliteal vein - Subjective Interval history: Ms. Orosco has been seen and evaluated this morning. She had completed her stress test, without any chest pain or discomforts. She does complain of some achiness. In discussion regarding her previous medical history she has had multiple left knee surgeries and has limited mobility on. She has difficulty getting up and has to transfer to the commode at bedside. She denies any nausea , vomiting, diarrhea or constipation. - Constitutional Vitals: Temp Pulse Resp BP Pulse Ox 97.6 F 75 14 120/80 97 09/29/17 07:48 09/29/17 07:48 09/29/17 07:48 09/29/17 07:48 09/29/17 07:48 General appearance: Present: A&O X 3, pleasant, answers questions appropriately Internal Medicine: Result - Labs CBC & Chem 7: 09/29/17 04:20 09/29/17 04:20 Labs: Short CBC 09/29/17 Range/Units 04:20 WBC 9.9 (4.3-11.1) K/mcL Hgb 13.9 (11.5-15.4) g/dL Hct 42.6 (35.3-44.9) % Plt Count 272 (140-400) K/mcL Neutrophils # 6.5 (1.6-8.9) K/mcL BMP 09/29/17 04:20 Sodium 137 Potassium 3.8 Chloride 101 Carbon Dioxide 29 BUN 17 Creatinine 0.81 Glucose 102 Calcium 9.1 Liver Function 09/29/17 Range/Units 04:20 Total Bilirubin 0.4 (0.3-1.0) mg/dL AST 13 (13-39) Units/L ALT 8 (7-52) Units/L Alkaline Phosphatase 78 (34-104) Units/L Albumin 3.7 (3.5-5.7) g/dL - ABG Interpretation ABG results: PT/INR, D-dimer PT 11.2 Seconds (9.4-12.1) 09/26/17 12:52 - Impressions Impressions Echocardiogram 09/26/17 16:47 Impressions: LVEF 55-60%. Indeterminate diastolic function. Definity echo contrast was used. Normal right ventricular structure and function. Mild mitral regurgitation. Mild tricuspid regurgitation. No pulmonary hypertension. Left Ventricular Wall Motion: Rest Echo Findings All wall segments showed normal motion. Findings: Study Quality * Technically adequate exam. ECG Findings * Normal sinus rhythm. Left Ventricle * LVEF 55-60%. * Normal LV chamber size, wall thickness and function. * Indeterminate diastolic function. * Definity echo contrast was used. Right Ventricle * Normal right ventricular structure and function. Left Atrium * Left atrium is not well visualized. Right Atrium * Right atrium is not well visualized. Aortic Valve * No aortic regurgitation. * Aortic valve not well visualized. * No aortic stenosis. Mitral Valve * No mitral stenosis. * Mild mitral regurgitation. * Normal mitral valve structure. Tricuspid Valve * Tricuspid valve not well visualized. * Mild tricuspid regurgitation. * Estimated RA pressure is 3 mmHg. * Estimated RVSP is 22 mmHg. * No pulmonary hypertension. Pulmonic Valve * Pulmonic valve is not well visualized. * No pulmonic stenosis. * No pulmonic regurgitation. Pulmonary Artery * Pulmonary artery not well visualized. Aorta * Not well visualized. Pericardium * There is no pericardial effusion present. Interatrial Septum * No evidence of PFO by color Doppler. IVC * Normal IVC dimensions and inspiratory collapse. - VTE Reasons for not Prescribing Prophylaxis: Not indicated-Anticoagulated or INR therapeutic Consult Discharge Plan - Plan Referrals: Pedro Luis Denson MD [Primary Care Provider] -
[2017-09-29] MEDS: Insulin LISPRO 300 UNITS/3 ML VIAL SQ SCH ×6 (08:24→15:54)
[2017-09-29] MEDS: Cholecalciferol (D-3) 1,000 UNIT TABLET PO SCH (08:31)
[2017-09-29] MEDS: Losartan/HCTZ 50-12.5 TABLET PO SCH (08:31)
[2017-09-29] MEDS: Furosemide 20 MG TABLET PO SCH ×2 (08:31→15:50)
[2017-09-29] MEDS: Aspirin 81 MG TAB.CHEW PO SCH (08:32)
[2017-09-29] MEDS: Multivit/Ca/Min/Fe/FA 1 TAB TABLET PO SCH (09:13)
[2017-09-29 15:56] VITALS: BP 114/74
--- NOTE | 2017-09-29 16:02 | Discharge Summary ---
<Minh Nunez - Last Filed: 09/29/17 16:20> Date of Encounter: 09/29/17 Time of Encounter: 16:00 - Discharge Diagnosis (1) Chest pain Priority: Primary Status: Acute Qualifiers: Ischemic chest pain type: stable angina pectoris Qualified Code(s): I20.8 - Other forms of angina pectoris (2) NSTEMI (non-ST elevated myocardial infarction) Priority: Secondary Status: Suspected (3) Hypertension Priority: Secondary Status: Chronic Qualifiers: Hypertension type: essential hypertension Qualified Code(s): I10 - Essential (primary) hypertension (4) Diabetes Priority: Secondary Status: Chronic Qualifiers: Diabetes mellitus type: type 2 Diabetes mellitus complication status: with other specified complication Diabetes mellitus product safety coordinator insulin use: with product safety coordinator use Qualified Code(s): E11.69 - Type 2 diabetes mellitus with other specified complication; Z79.4 - glove printer (current) use of insulin; Z79.4 - glove printer (current) use of insulin; Z79.4 - assisted (current) use of insulin; Z79.4 - assisted (current) use of insulin (5) Morbid obesity Priority: Secondary Status: Chronic (6) DVT (deep venous thrombosis) Priority: Secondary Status: Chronic Qualifiers: DVT location: lower extremity Affected thrombotic vein of extremity: popliteal Chronicity: chronic Laterality: left Qualified Code(s): I82.532 - Chronic embolism and thrombosis of left popliteal vein - Discharge Medications Home Medications: Albuterol Sulfate [Albuterol Inhaler] 2 puff IH Q4HR PRN 08/22/16 [History] Calcium Carbonate/Vitamin D3 [Oyster [place] Calcium-Vit D Tab] 1 tab PO BID 08/22 [History] Fluticasone Propionate Nasal [Flonase] 1 spr NS BID PRN 08/22/16 [History] Insulin ASPART [Novolog Flexpen] 5 - 10 unit SQ TID PRN 08/22/16 [History] Multivit-Min/FA/Lycopen/Lutein [Centrum Silver Tablet] 1 each PO DAILY 08/22/16 [History] Paroxetine HCl 10 mg PO QAM 08/22/16 [History] Potassium Chloride 10 meq PO DAILY 08/22/16 [History] SUMAtriptan Succinate [Imitrex] 100 mg PO DAILY PRN 08/22/16 [History] Topiramate [Topamax] 25 mg PO HS 08/22/16 [History] TraZODone 50 mg PO HS 08/22/16 [History] Insulin Glargine,Hum.rec.anlog [Basaglar Stalinikpen U-100] 18 - 20 unit SQ HS PRN 11/05/16 [History] Losartan/HCTZ [Hyzaar 50-12.5 Tablet] 1 tab PO DAILY 11/05/16 [History] Aspirin 81 mg PO DAILY 07/29/17 [History] Ergocalciferol (VITAMIN D2) [Vitamin D2] 50,000 unit PO WE 07/29/17 [History] Furosemide [Lasix] 20 mg PO BID 07/29/17 [History] Loratadine [Allergy Relief] 10 mg PO DAILY PRN 07/29/17 [History] OxyCODONE/APAP 10/325 [Percocet 10/325 MG] 1 tab PO TID PRN 07/29/17 [History] Pantoprazole Sodium 40 mg PO BID 07/29/17 [History] Apixaban [Eliquis] 5 mg PO BID 09/26/17 [History] Allergies/Adverse Reactions: 3 Allergy/AdvReac Type Severity Reaction Status Date / Time [place] And Derivatives Allergy Hives Verified 09/26/17 15:49 gabapentin Allergy Swelling Verified 09/26/17 15:49 of Lip/Tongue/Throat hydrocodone Allergy Hives Verified 09/26/17 15:49 levofloxacin [From Levaquin] Allergy Anaphylaxis Verified 09/26/17 15:49 lisinopril Allergy Hives Verified 09/26/17 15:49 propoxyphene Allergy Hives Verified 09/26/17 15:49 [From Darvocet-N] Sulfa (Sulfonamide Allergy Hives Verified 09/26/17 15:49 Antibiotics) duloxetine [From Cymbalta] AdvReac Hallucinati Verified 09/26/17 15:49 ng lactose AdvReac Abdominal Verified 09/26/17 15:49 Pain Procedures/tests Complete & Pending: Procedures Performed prior 72 hours Category Date Time Status CTA chest [CT angio chest] [CT] Routine Cat Scan 09/26/17 18:18 Completed NM carl perf SPECT multi [NM] Routine Exams 09/27/17 12:02 Taken ECG 12 lead ECG [ECG] Routine Y 09/26/17 18:05 Completed EV echocardiogram w enhance Stat Y 09/26/17 16:47 Completed SP pharm nuclear stress Routine Y 09/28/17 00:01 Completed Date of admission: 09/26/17 16:46 Primary care physician: Pedro Luis Denson MD Discharging clinician: Minh Nunez Anticipated date of discharge: 09/29/17 - Patient Status Disposition: Home, Self-Care Condition: Fair Overall status at discharge: patient is back to baseline - Discharge Instructions Instructions: Chest Pain (DC) Follow Up With: Pedro Luis Denson MD [Primary Care Provider] - Additional Instructions: Follow up with your PCP in the next 3-5 days for hospital follow up Take medications as prescribed. - Diet and Activity Activity: increase activity as tolerated Diet: advance to your usual diet Interval History: Ms. Orosco is a 47 year old female with hx of DM and HTN presented to ED with complaints of substernal chest pressure on 09/26/2017, EKG was performed with nonspecific ST wave changes troponins went from 0.03 to 0.10 to0.03, 0.03.She was admitted to medical telemetry floor placed on cardiac monitoring and a heparin drip. She remained stable overnight EKG with no acute changes. Underwent a 2 day stress test with no acute findings, perfusion image was negative for ischemia or infarcts. Pharmacologic stress EKG is negative for ischemia at level of heart rate achieved. Gated EF was 65% patient remained stable through the remainder of inpatient stay and discharged home with recommendations for close follow-up with her primary care provider for further evaluation posthospitalization. Patient was agreeable to this plan. Hospital course: Ms. Orosco is a 47 year old female - Time Spent with Patient Total time spent providing and/or coordinating discharge services: - Constitutional Vitals: Temp Pulse Resp BP Pulse Ox 97.6 F 79 14 114/74 95 09/29/17 15:49 09/29/17 15:49 09/29/17 15:49 09/29/17 15:49 09/29/17 15:49 General appearance: Present: A&O X 3, pleasant, answers questions appropriately - Head Head exam: Present: atraumatic, normocephalic - Eye Eye exam: Present: PERRL, conjuntiva pink, sclera anicteric Pupils: Present: PERRL - Neck Neck exam general surgery: Present: supple, trachea midline. Absent: lymphadenopathy - Respiratory Respiratory exam: Present: CTAB. Absent: accessory muscle use, rales, rhonchi, wheezes - Cardiovascular Cardiovascular exam: Present: RRR, +S1, +S2. Absent: diastolic murmur, gallop, rubs, systolic murmur - GI/Abdominal GI/Abdominal exam: Present: normal bowel sounds, soft, no peritoneal signs. Absent: distended, tenderness - Extremities Exam Extremities exam: Present: warm, radial pulses palpable and symmetrical. Absent : calf tenderness, cyanotic, pedal edema - Neurological Exam Neurological exam: Present: CN II-XII intact, oriented X3, no focal deficits. Absent: pronater drift, facial droop, speech deficit - Skin Skin exam: Present: dry, intact - VTE Reasons for not Prescribing Prophylaxis: Not indicated-Anticoagulated or INR therapeutic <Lane Jones P - Last Filed: 09/29/17 17:47> Date of Encounter: 09/29/17 Procedures/tests Complete & Pending: Procedures Performed prior 72 hours Category Date Time Status CTA chest [CT angio chest] [CT] Routine Cat Scan 09/26/17 18:18 Completed NM carl perf SPECT multi [NM] Routine Exams 09/27/17 12:02 Taken ECG 12 lead ECG [ECG] Routine Y 09/26/17 18:05 Completed EV echocardiogram w enhance Stat Y 09/26/17 16:47 Completed SP pharm nuclear stress Routine Y 09/28/17 00:01 Completed Date of admission: 09/26/17 16:46 Primary care physician: Pedro Luis Denson MD Hospital course: Ms. Orosco is a 47 year old female - Time Spent with Patient Total time spent providing and/or coordinating discharge services: - Constitutional Vitals: Temp Pulse Resp BP Pulse Ox 97.6 F 79 14 114/74 95 09/29/17 15:49 09/29/17 15:49 09/29/17 15:49 09/29/17 15:49 09/29/17 15:49 - Attending Attestation I examined this patient and my medical decision-making was reviewed with the Resident Physician. I agree with the documented findings, disposition and treatment plan as described except to the extent set forth below. 47/female Admitted with chest pain. Workup negative for ischemic etiology. Follow-up with PCP to rule out other causes of chest pain.
--- NOTE | 2017-09-29 17:06 | Electrocardiograph Report ---
[address] [address] Test Date: 2017-09-26 Pat Name: Saira Orosco Department: 104 Room: 2NE27 Gender: F Spot Welder: JACQUE : 1970 Requested By: Rohith Artis Order Number: [id number] Reading MD: Marlo Sood Measurements Intervals [place] Rate: 61 P: 39 MT: 169 QRS: 12 QRSD: 93 T: -12 QT: 406 QTc: 409 Interpretive Statements SINUS RHYTHM Electronically Signed On 09-29-2017 17:04:36 EST by Marlo Sood
--- NOTE | 2017-09-29 17:10 | Electrocardiograph Report ---
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
--- NOTE | 2017-09-29 17:12 | Electrocardiograph Report ---
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
== END 2017-09-29 18:32 | disposition home or self-care (01) ==
LOC: EMEROO 12:32 → SUATTDRO 16:46 → 2NENU 16:46 → INTOOBSV 16:46 → 2NENU 17:32
PROVIDERS: ADMIT Internal Medicine; ATTEND Internal Medicine

== ENCOUNTER 2018-10-06 13:33 | Observation (INO) ==
[2018-10-06] MEDS ORDERED: Nitroglycerin 0.4 MG TAB.SUBL SL ONE (13:38)
--- NOTE | 2018-10-06 13:56 | Emergency Department Note ---
Disposition Clinical Impression: Vertigo, Near syncope, Chest pain Closed head injury Qualifiers: Encounter type: initial encounter Qualified Code(s): S09.90XA - Unspecified injury of head, initial encounter Disposition: Admitted As Inpatient Condition: Good Forms: ED Satisfaction Letter General Adult HPI - General Chief complaint: ED Chest Pain Stated complaint: cp Time Seen by Provider: 10/06/18 13:35 Source: patient, EMS Limitations: no limitations - History of Present Illness Pain Scale: 5 - Related Data Home Medications Medication Instructions Recorded Confirmed Insulin ASPART [Novolog Flexpen] 5 - 10 unit SQ TID PRN 08/22/16 03/03/18 TraZODone 50 mg PO HS 08/22/16 03/03/18 Insulin Glargine,Hum.rec.anlog 20 unit SQ HS PRN 11/05/16 03/03/18 [Basaglar Kwikpen U-100] OxyCODONE/APAP 10/325 [Percocet 1 tab PO TID PRN 07/29/17 03/03/18 10/325 MG] Furosemide [Lasix] 40 mg PO DAILY 10/14/17 03/03/18 Losartan/HCTZ [Hyzaar 50-12.5 1 tab PO DAILY 10/14/17 03/03/18 Tablet] Nitroglycerin 0.4 mg SL Q5MIN 10/14/17 03/03/18 Previous Rx's Medication Instructions Recorded Doxycycline 100 mg PO BID #14 capsule 03/03/18 GuaiFENesin/Codeine [Robitussin 5 ml PO Q6HR PRN 5 Days #120 liquid 03/03/18 w/Codeine] Allergies Allergy/AdvReac Type Severity Reaction Status Date / Time acetaminophen [From Tylenol] Allergy Hives Verified 03/03/18 19:52 azithromycin Allergy Hives Verified 03/03/18 19:52 [From Zithromax Z-Heriberto] [place] And Derivatives Allergy Hives Verified 03/03/18 19:52 gabapentin Allergy Swelling Verified 03/03/18 19:52 of Lip/Tongue/Throat hydrocodone Allergy Hives Verified 03/03/18 19:52 levofloxacin [From Levaquin] Allergy Anaphylaxis Verified 03/03/18 19:52 promethazine [From Phenergan] Allergy Hives Verified 03/03/18 19:52 propoxyphene Allergy Hives Verified 03/03/18 19:52 [From Darvocet-N] Sulfa (Sulfonamide Allergy Hives Verified 03/03/18 19:52 Antibiotics) duloxetine [From Cymbalta] AdvReac Hallucinati Verified 03/03/18 19:52 ng lactose AdvReac Abdominal Verified 03/03/18 19:52 Pain lisinopril AdvReac Cough Verified 03/03/18 19:52 lovastatin AdvReac Muscle Pain Verified 03/03/18 19:52 Past Medical History - Past Medical History Medical history: Reports: asthma, coronary artery disease, diabetes, hypertension, myocardial infarction, seizures Surgical history: Reports: cholecystectomy, hysterectomy, orthopedic, other Psychiatric history: Reports: anxiety, depression, PTSD - Social History Smoking Status: Never smoker Smokeless Tobacco Status: No Alcohol use: Reports: none Drug use: Reports: none Physical Exam - General Limitations: no limitations General appearance: alert, in no apparent distress Course Vital Signs Temperature 98.3 F 10/06/18 13:34 Pulse Rate 74 10/06/18 13:34 Respiratory Rate 16 10/06/18 13:34 Blood Pressure 123/77 10/06/18 13:34 O2 Sat by Pulse Oximetry 99 10/06/18 13:34 Temperature 98.3 F 10/06/18 13:34 Pulse Rate 74 10/06/18 13:34 Respiratory Rate 16 10/06/18 13:34 Blood Pressure 123/77 10/06/18 13:34 O2 Sat by Pulse Oximetry 99 10/06/18 13:34 Oxygen Delivery Oxygen Delivery Room Air Medical Decision Making - MDM Narrative Medical decision making narrative: all imaging neg removed from C collar trop neg admit for acs eval, near syncope, vertigo workup vss - Medical Records Medical records reviewed: Yes I reviewed the patient's medical records. - Lab Data Lab results reviewed: Yes I reviewed the patient's lab results. Result diagrams: 10/06/18 13:51 10/06/18 13:51 Lab Results 10/06/18 10/06/18 10/06/18 Range/Units 13:51 13:51 13:51 WBC 8.0 (4.3-11.1) K/mcL RBC 4.84 (3.82-4.97) M/mcL Hgb 14.3 (11.5-15.4) g/dL Hct 44.2 (35.3-44.9) % MCV 91.3 (83.0-100.0) fL MCH 29.5 (28.0-33.3) pg MCHC 32.4 (31.6-35.5) g/dL RDW 13.4 (11.5-14.5) % Plt Count 263 (140-400) K/mcL MPV 10.6 (9.4-12.4) fL Immature Gran % 0.2 (0-4) % Seg Neutrophils % 67.2 % Lymphocytes % 23.9 % Monocytes % 7.0 % Eosinophils % 1.2 % Basophils % 0.5 % Neutrophils # 5.4 (1.6-8.9) K/mcL Lymphocytes # 1.9 (0.6-4.6) K/mcL Monocytes # 0.6 (0.0-1.3) K/mcL Eosinophils # 0.1 (0.0-0.6) K/mcL Basophils # 0.0 (0.0-0.2) K/mcL PT 11.5 (9.4-12.1) Seconds INR 1.0 APTT 31.4 (26.0-36.0) Seconds Sodium Cancelled Potassium Cancelled Chloride Cancelled Carbon Dioxide Cancelled BUN Cancelled Creatinine Cancelled Est GFR ( Amer) Cancelled Est GFR (Non-Af Amer) Cancelled BUN/Creatinine Ratio Cancelled Glucose Cancelled Calculated Osmolality Cancelled Calcium Cancelled Magnesium Cancelled Troponin I < 0.03 (< 0.04) ng/mL Specimen Rejected 10/06/18 Range/Units 13:51 WBC (4.3-11.1) K/mcL RBC (3.82-4.97) M/mcL Hgb (11.5-15.4) g/dL Hct (35.3-44.9) % MCV (83.0-100.0) fL MCH (28.0-33.3) pg MCHC (31.6-35.5) g/dL RDW (11.5-14.5) % Plt Count (140-400) K/mcL MPV (9.4-12.4) fL Immature Gran % (0-4) % Seg Neutrophils % % Lymphocytes % % Monocytes % % Eosinophils % % Basophils % % Neutrophils # (1.6-8.9) K/mcL Lymphocytes # (0.6-4.6) K/mcL Monocytes # (0.0-1.3) K/mcL Eosinophils # (0.0-0.6) K/mcL Basophils # (0.0-0.2) K/mcL PT (9.4-12.1) Seconds INR APTT (26.0-36.0) Seconds Sodium Potassium Chloride Carbon Dioxide BUN Creatinine Est GFR ( Amer) Est GFR (Non-Af Amer) BUN/Creatinine Ratio Glucose Calculated Osmolality Calcium Magnesium Troponin I (< 0.04) ng/mL Specimen Rejected Hemolyzed - Radiology Data Radiology results reviewed: Yes I reviewed the patient's radiology results. Critical Care Time Critical Care Time: No Attestation Statement - Attestation Attestation: I examined this patient and my medical decision-making was reviewed with the Resident Physician. I agree with the documented findings, disposition and treatment plan as described except to the extent set forth below. 48-year-old female presented to the emergency room for vertigo complaints and chest pain. She has been dizzy for at least 3 days. Associated vertigo symptom s with the room spinning at times. Worse with activity. Better at rest. She was having some right arm paresthesias. She denies any headache. She was having a vertigo episode while in the kitchen and felt weak like she might pass out and did this her balance and fall and she did not strike her head on the refrigerator. She denied LOC. She is complaining of some neck discomfort. We will place her in a cervical collar. Patient will have a CT of the head and neck as well as an ACS evaluation. She is chest pain-free at the moment. Her glucose was checked by ambulance and was greater than 100. She has a known diabetic. EKG does not show any ischemia. Patient will need to be admitted for workup of the vertigo and chest pain.
--- NOTE | 2018-10-06 14:01 | Emergency Department Note ---
Disposition Clinical Impression: Vertigo, Near syncope Chest pain Qualifiers: Ischemic chest pain type: stable angina pectoris Qualified Code(s): I20.8 - Other forms of angina pectoris Closed head injury Qualifiers: Encounter type: initial encounter Qualified Code(s): S09.90XA - Unspecified injury of head, initial encounter Disposition: Admitted As Inpatient Condition: Fair Chest Pain HPI - General Chief Complaint: ED Chest Pain Stated Complaint: cp Time Seen by Provider: 10/06/18 13:35 Source: patient, EMS Mode of arrival: EMS Limitations: no limitations Vital Signs Reviewed: Yes Nursing Notes Reviewed: Yes - History of Present Illness HPI Narrative: 48-year-old female with past medical history including prior myocardial infarction 2 years ago with no stent placement during her catheterization, diabetes mellitus type 2, gastroparesis, hypertension, presenting with chief complaint of substernal chest pain that started one and half hours prior to arrival. Patient states she has a 3 day history of vertigo which she describes as the room spinning. It is exacerbated with movement. It spontaneously resolves when she is at rest. She has been having multiple episodes a day. This morning, she was not feeling well she complains of vertigo as well as lightheadedness. She developed sudden onset substernal chest pain while she was laying down. She also complains of right arm numbness. She complains of nausea and one episode of nonbilious nonbloody vomiting and associated shortness of breath. She got up went to the bathroom and felt the vertigo worsening and felt like she was going to pass out as well. She did collapse and hit her head against the sink. She denies loss of consciousness. She called her sister who called EMS. Patient received 424 mg of aspirin and 1 nitroglycerin with mild improvement in her chest pain and route. Their EKG did not show any ST elevation. Patient denies fevers or chills, recent illnesses. She does complain of some right upper and left upper quadrant abdominal tenderness that she states is different from her gastroparesis. No new lower extremity swelling. Severity scale (1-10): 5 - Related Data Home Medications Medication Instructions Recorded Confirmed Insulin ASPART [Novolog Flexpen] 5 - 10 unit SQ TID PRN 08/22/16 03/03/18 TraZODone 50 mg PO HS 08/22/16 03/03/18 Insulin Glargine,Hum.rec.anlog 20 unit SQ HS PRN 11/05/16 03/03/18 [Basaglar Kwikpen U-100] OxyCODONE/APAP 10/325 [Percocet 1 tab PO TID PRN 07/29/17 03/03/18 10/325 MG] Furosemide [Lasix] 40 mg PO DAILY 10/14/17 03/03/18 Losartan/HCTZ [Hyzaar 50-12.5 1 tab PO DAILY 10/14/17 03/03/18 Tablet] Nitroglycerin 0.4 mg SL Q5MIN 10/14/17 03/03/18 Previous Rx's Medication Instructions Recorded Doxycycline 100 mg PO BID #14 capsule 03/03/18 GuaiFENesin/Codeine [Robitussin 5 ml PO Q6HR PRN 5 Days #120 liquid 03/03/18 w/Codeine] Allergies Allergy/AdvReac Type Severity Reaction Status Date / Time acetaminophen [From Tylenol] Allergy Hives Verified 03/03/18 19:52 azithromycin Allergy Hives Verified 03/03/18 19:52 [From Zithromax Z-Heriberto] [place] And Derivatives Allergy Hives Verified 03/03/18 19:52 gabapentin Allergy Swelling Verified 03/03/18 19:52 of Lip/Tongue/Throat hydrocodone Allergy Hives Verified 03/03/18 19:52 levofloxacin [From Levaquin] Allergy Anaphylaxis Verified 03/03/18 19:52 promethazine [From Phenergan] Allergy Hives Verified 03/03/18 19:52 propoxyphene Allergy Hives Verified 03/03/18 19:52 [From Darvocet-N] Sulfa (Sulfonamide Allergy Hives Verified 03/03/18 19:52 Antibiotics) duloxetine [From Cymbalta] AdvReac Hallucinati Verified 03/03/18 19:52 ng lactose AdvReac Abdominal Verified 03/03/18 19:52 Pain lisinopril AdvReac Cough Verified 03/03/18 19:52 lovastatin AdvReac Muscle Pain Verified 03/03/18 19:52 All systems ED: reviewed and negative except as stated. Review of Systems: As Per HPI Constitutional: Denies: fever, chills ENT ED: Denies: throat pain, congestion Cardiovascular: Reports: chest pain Respiratory: Reports: dyspnea. Denies: cough Gastrointestinal: Reports: abdominal pain, nausea, vomiting. Denies: diarrhea Genitourinary: Denies: dysuria Musculoskeletal: Reports: neck pain Neurological: Reports: numbness, vertigo. Denies: headache, weakness Chest Pain PMH - Past Medical History Medical history: Reports: asthma, coronary artery disease, diabetes, hypertension, myocardial infarction, seizures Surgical history: Reports: cholecystectomy, hysterectomy, orthopedic, other Psychiatric history: Reports: anxiety, depression, PTSD - Social History Smoking Status: Never smoker Alcohol use: Reports: none Drug use: Reports: none Physical Exam - General Limitations: no limitations General appearance: alert, in no apparent distress - Head Head exam: other (mild erythema with no swelling on right side of forehead) - Eye Eye exam: Present: normal appearance, PERRL, EOMI - ENT ENT exam: normal exam, normal oropharynx, mucous membranes moist - Neck Neck exam: Present: normal inspection, trachea midline, other (Positive midline cervical tenderness at C3-C5 level) - Chest Chest inspection: Present: normal inspection, symmetric chest wall rise - Respiratory Respiratory exam: Present: normal lung sounds bilaterally. Absent: respiratory distress, wheezes - Cardiovascular Cardiovascular exam: Present: regular rate, normal rhythm, normal heart sounds, other (Bilateral radial pulses are equal. No systolic or diastolic murmur heard. No carotid bruit) - Abdominal Exam Abdominal exam: Present: soft, Non-Tender. Absent: distention - Extremities Exam Extremities exam: Present: normal inspection, full ROM, normal capillary refill - Neurological Exam Neurological exam: Present: alert, oriented X3, CN II-XII intact. Absent: motor sensory deficit - Expanded Neurological Exam Speech: Present: fluid speech Motor strength - LUE: 5/5 Motor strength - RUE: 5/5 Motor strength - LLE: 5/5 Motor strength - RLE: 5/5 Upper motor neuron exam: conrad neglect: Absent bilaterally Sensory exam upper extremity: light touch: Normal Sensory exam lower extremity: light touch: Normal - Psychiatric Psychiatric exam: Present: normal affect, normal mood - Skin Skin exam: Present: warm, dry, intact, normal color. Absent: diaphoresis, pallor Course Vital Signs Temperature 98.3 F 10/06/18 13:34 Pulse Rate 74 10/06/18 13:34 Respiratory Rate 16 10/06/18 13:34 Blood Pressure 123/77 10/06/18 13:34 O2 Sat by Pulse Oximetry 99 10/06/18 13:34 Temperature 98.3 F 10/06/18 13:34 Pulse Rate 74 10/06/18 13:34 Respiratory Rate 16 10/06/18 15:24 Blood Pressure 121/72 10/06/18 15:24 O2 Sat by Pulse Oximetry 99 10/06/18 13:34 Oxygen Delivery Oxygen Delivery Room Air Chest Pain - MDM Narrative Medical decision making narrative: Patient presenting with sudden onset substernal chest pain one and half hours ago associated with nausea, one episode of nonbilious nonbloody vomiting, shortness of breath. She has also been having a 3 day history of vertigo which she describes as the room spinning associated with some lightheadedness. She did have a near syncopal event worsening vertigo and hit the right front portion of her head today. Nonfocal neurologic examination. No murmur on cardiac examination. We will place the patient in a cervical collar as she has some midline cervical spinal tenderness. We will check CT head and cervical spine without contrast. We will also obtain cardiac workup and check EKG, chest x- ray, CBC, BMP, troponin. She will require admission for ACS workup, near syncope and vertigo. 15:00 CT imaging without acute intracranial abnormality and no cervical spine fracture. C-collar was removed. Chest x-ray without acute cardiopulmonary process. Troponin is normal. BMP was hemolyzed and will be redrawn. Discussed with Dr. Fajardo, admitting hospitalist who accepts the patient. I will call him back if there is any gross electrolyte abnormalities. Patient has been admitted for ACS workup and near syncope. Patient's chest pain is improved and vitals remained stable. 15:20 Called lab about patient's hemolyzed BMP and will need a repeat. 16:00 Patient has been transported to her hospital bed and has been admitted. Electrolytes, BUN and creatinine are within normal limits. - Medical Records Medical records reviewed: Yes I reviewed the patient's medical records. - Lab Data Lab results reviewed: Yes I reviewed the patient's lab results. Result diagrams: 10/06/18 13:51 10/06/18 13:51 Lab Results 10/06/18 10/06/18 10/06/18 Range/Units 13:51 13:51 13:51 WBC 8.0 (4.3-11.1) K/mcL RBC 4.84 (3.82-4.97) M/mcL Hgb 14.3 (11.5-15.4) g/dL Hct 44.2 (35.3-44.9) % MCV 91.3 (83.0-100.0) fL MCH 29.5 (28.0-33.3) pg MCHC 32.4 (31.6-35.5) g/dL RDW 13.4 (11.5-14.5) % Plt Count 263 (140-400) K/mcL MPV 10.6 (9.4-12.4) fL Immature Gran % 0.2 (0-4) % Seg Neutrophils % 67.2 % Lymphocytes % 23.9 % Monocytes % 7.0 % Eosinophils % 1.2 % Basophils % 0.5 % Neutrophils # 5.4 (1.6-8.9) K/mcL Lymphocytes # 1.9 (0.6-4.6) K/mcL Monocytes # 0.6 (0.0-1.3) K/mcL Eosinophils # 0.1 (0.0-0.6) K/mcL Basophils # 0.0 (0.0-0.2) K/mcL PT 11.5 (9.4-12.1) Seconds INR 1.0 APTT 31.4 (26.0-36.0) Seconds Sodium Cancelled Potassium Cancelled Chloride Cancelled Carbon Dioxide Cancelled BUN Cancelled Creatinine Cancelled Est GFR ( Amer) Cancelled Est GFR (Non-Af Amer) Cancelled BUN/Creatinine Ratio Cancelled Glucose Cancelled Calculated Osmolality Cancelled Calcium Cancelled Magnesium Cancelled Troponin I < 0.03 (< 0.04) ng/mL Specimen Rejected 10/06/18 Range/Units 13:51 WBC (4.3-11.1) K/mcL RBC (3.82-4.97) M/mcL Hgb (11.5-15.4) g/dL Hct (35.3-44.9) % MCV (83.0-100.0) fL MCH (28.0-33.3) pg MCHC (31.6-35.5) g/dL RDW (11.5-14.5) % Plt Count (140-400) K/mcL MPV (9.4-12.4) fL Immature Gran % (0-4) % Seg Neutrophils % % Lymphocytes % % Monocytes % % Eosinophils % % Basophils % % Neutrophils # (1.6-8.9) K/mcL Lymphocytes # (0.6-4.6) K/mcL Monocytes # (0.0-1.3) K/mcL Eosinophils # (0.0-0.6) K/mcL Basophils # (0.0-0.2) K/mcL PT (9.4-12.1) Seconds INR APTT (26.0-36.0) Seconds Sodium Potassium Chloride Carbon Dioxide BUN Creatinine Est GFR ( Amer) Est GFR (Non-Af Amer) BUN/Creatinine Ratio Glucose Calculated Osmolality Calcium Magnesium Troponin I (< 0.04) ng/mL Specimen Rejected Hemolyzed - Radiology Data Radiology results reviewed: Yes I reviewed the patient's radiology results. - EKG Data EKG attestation: Yes I reviewed and interpreted this EKG. EKG results narrative: EKG obtained today at 1336 shows sinus rhythm with heart rate 83. IN interval 151. QRS duration 87. QTC I 38. Flattening of T waves in V1 through V6. No ST elevation or depression noted. Compared to old EKG on 09/26/2017 which appears unchanged. Heart Score - Score History: Moderately Suspicious EKG: Normal Age: 45-65 Risk Factors: Equal/Greater than 3 risk factor or history of atherosclerotic disease Troponin: Less than normal limit HEART Score Total: 4
[2018-10-06 14:04] LABS: Basophils % 0.5 %; Eosinophils # 0.1 K/mcL (0.0-0.6); Eosinophils % 1.2 %; Hematocrit 44.2 % (35.3-44.9); Hemoglobin 14.3 g/dL (11.5-15.4); Immature Granulocytes % 0.2 % (0-4); Lymphocytes # 1.9 K/mcL (0.6-4.6); Lymphocytes % 23.9 %; Mean Corpuscular HGB Conc 32.4 g/dL (31.6-35.5); Mean Corpuscular Hemoglobin 29.5 pg (28.0-33.3); Mean Corpuscular Volume 91.3 fL (83.0-100.0); Mean Platelet Volume 10.6 fL (9.4-12.4); Monocytes # 0.6 K/mcL (0.0-1.3); Neutrophils # 5.4 K/mcL (1.6-8.9); Platelet Count 263 K/mcL (140-400); Red Blood Count 4.84 M/mcL (3.82-4.97); Red Cell Distribution Width 13.4 % (11.5-14.5); Segmented Neutrophils % 67.2 %
[2018-10-06 14:11] LABS: Prothrombin Time 11.5 Seconds (9.4-12.1)
[2018-10-06 14:14] LABS: Activated Partial Thrombo Time 31.4 Seconds (26.0-36.0)
[2018-10-06 16:01] LABS: BUN/Creatinine Ratio 16 (6-26); Blood Urea Nitrogen 14 mg/dL (6-20); Calcium 9.2 mg/dL (8.6-10.3); Carbon Dioxide 25 mEq/L (23-29); Chloride 107 mEq/L (98-107); Glucose 106 mg/dL (70-105); Osmolality,Calculated 291 (280-300); Potassium 3.9 mEq/L (3.5-5.1); Sodium 140 mEq/L (136-145); eGFR For Non-African Americans > 60 (> 60)
[2018-10-06] MEDS ORDERED: Naloxone 0.4 MG/ML INJ IVP PRN (17:08)
--- NOTE | 2018-10-06 17:11 | Internal Med History&Physical ---
Date of Encounter: 10/06/18 Time of Encounter: 17:10 Internal Medicine - H&P: HPI Chief complaint: Chest pain, Vertigo Admitted From: Emergency Dept History of present illness: Ms. Duran is a 48 year old female w hx obesity, HTN, DM2 c/b gastroparesis, pseudoseizures, who presents with 3 days vertigo. Worse with movement, particularly bending forward, but not when rolling over in bed. Occurs when bends down to get laundry or when reaching into fridge. No worsening of baseline nausea but did vomiting once earlier today. Also, today, reached into fridge and felt very dizzy, everything spinning, and she lost balance and bumped her head on the sink while falling. Did not hit it hard, and no LOC before or after. No visual changes in last few days. No hearing changes. Does state that this morning she began to get a bit nervous and then experienced substernal chest pressure while at rest. Of note, patient does endorse significant anxiety at times. Her ROS is dixon-positive but filtered to relevant symptoms in last 3-4 days. In the ED, trops and ECG unremarkable. Admitted for high risk chest pain rule out as well as symptomatic management of vertigo. PMH: asthma, HTN, DM2, pseudo-seizures, gastroparesis PSH: LHC '18 normal, choly, DES, Paul SH: no smoking, no EtOH FH: father and mother both with CAD and CHF, DM2 Allergies: gabapentin and levaquin caused anaphylaxis/swelling, several others like tylenol azithro sulfa caused hives Past Med Surg Social Fam HX - Past Medical History Medical history: asthma, coronary artery disease, diabetes, hypertension, myoca rdial infarction, seizures Additional medical history: obesity, sleep apnea, thyroid nodules Psychiatric history: anxiety, depression, PTSD - Past Surgical History Surgical History: cholecystectomy, hysterectomy, orthopedic, other Additional surgical history: paul, left knee - Social History Smoking Status: Never smoker Smokeless Tobacco Status: No Alcohol use: none Drug use: none - Family History Mother Living Status: Still Living Hx Family Cardiac Disorders: Yes (Cardiac disease) Hx Family Endocrine Disorder: Yes (Diabetes) Father Adopted: No Family Member Ethnicity: Non- Living Status: Hx Family Cardiac Disorders: Yes Hx Family Respiratory Disorders: Yes (sleep apnea) Hx Family Cancer: Yes Hx Family Endocrine Disorder: Yes (Diabetes) Hx Family Neuromuscular Disorders: No Hx Family Neurologic Disorders: No Hx Family HEENT Disorders: No Hx Family Autoimmune Disorders: No Internal Medicine - H&P: Meds Insulin ASPART [Novolog Flexpen] 5 - 10 unit SQ TID PRN 08/22/16 [History] TraZODone 50 mg PO HS 08/22/16 [History] Insulin Glargine,Hum.rec.anlog [Basaglar Kwikpen U-100] 20 unit SQ HS PRN 11/05/16 [History] OxyCODONE/APAP 10/325 [Percocet 10/325 MG] 1 tab PO TID PRN 07/29/17 [History] Furosemide [Lasix] 40 mg PO DAILY 10/14/17 [History] Losartan/HCTZ [Hyzaar 50-12.5 Tablet] 1 tab PO DAILY 10/14/17 [History] Nitroglycerin 0.4 mg SL Q5MIN 10/14/17 [History] Doxycycline 100 mg PO BID #14 capsule 03/03/18 [Rx] GuaiFENesin/Codeine [Robitussin w/Codeine] 5 ml PO Q6HR PRN 5 Days #120 liquid 03/03/18 [Rx] Allergy/AdvReac Type Severity Reaction Status Date / Time acetaminophen [From Tylenol] Allergy Hives Verified 03/03/18 19:52 azithromycin Allergy Hives Verified 03/03/18 19:52 [From Zithromax Z-Heriberto] [place] And Derivatives Allergy Hives Verified 03/03/18 19:52 gabapentin Allergy Swelling Verified 03/03/18 19:52 of Lip/Tongue/Throat hydrocodone Allergy Hives Verified 03/03/18 19:52 levofloxacin [From Levaquin] Allergy Anaphylaxis Verified 03/03/18 19:52 promethazine [From Phenergan] Allergy Hives Verified 03/03/18 19:52 propoxyphene Allergy Hives Verified 03/03/18 19:52 [From Darvocet-N] Sulfa (Sulfonamide Allergy Hives Verified 03/03/18 19:52 Antibiotics) duloxetine [From Cymbalta] AdvReac Hallucinati Verified 03/03/18 19:52 ng lactose AdvReac Abdominal Verified 03/03/18 19:52 Pain lisinopril AdvReac Cough Verified 03/03/18 19:52 lovastatin AdvReac Muscle Pain Verified 03/03/18 19:52 All Systems PM: A 10-system review of systems was performed and is negative for pertinent findings except as documented above in the HPI. Review of systems: Constitutional: No fever, chills, night sweats, weight change, appetite change, malaise/fatigue Skin: No rash, itching, lesions, bruises HENT: No congestion, sore throat Eyes: +blurry vision over last few months, no diminished vision Cardiovascular: +chest pain, no palpitations, stable edema, no orthopnea Respiratory: No cough, shortness of breath, wheezing Gastrointestinal: +nausea, +vomiting, chronic abdominal pain, no diarrhea, no constipation Genitourinary: No dysuria or hematuria Musculoskeletal: No joint pains or decreased range of motion Neurological: +dizziness, +headaches, no weakness or confusion Psychiatric: No depression, +anxiety Allergy/Immunology: +history of environmental allergies, no urticaria Endocrine: No polydipsia, polyuria, cold/heat intolerance - Constitutional Vitals: Temp Pulse Resp BP Pulse Ox 97.4 F L 68 18 121/80 97 10/06/18 16:00 10/06/18 16:00 10/06/18 16:00 10/06/18 16:00 10/06/18 16:00 Exam: General: NAD, AAOx3, good eye contact, well appearing, obese Head: Atraumatic, normocephalic. Face symmetric Eyes: EOMI, sclerae anicteric ENT: Mucous membranes dry. Normal oral mucosa and dentition. Trachea midline. Thoracic: No visible chest wall deformities. Normal breath sounds b/l, no wheezing or crackles Cardio: Normal S1 and S2, regular rate and rhythm, no murmurs. Abdomen: Soft, nontender, nondistended, obese Extremities: Warm, well perfused. DP pulses 2+ b/l. No clubbing, cyanosis. Mild nonpitting edema b/l LE Skin: Intact. No rashes, bruises, or ulcers Neuro: Awake, fully oriented. Good memory, concentration, attention. Speech f luent. CN II-XII grossly intact. Strength 5/5 in b/l UE and LE. No nystagmus. Internal Med - H&P Results - Labs CBC & Chem 7: 10/06/18 13:51 10/06/18 13:51 Labs: Short CBC 10/06/18 Range/Units 13:51 WBC 8.0 (4.3-11.1) K/mcL Hgb 14.3 (11.5-15.4) g/dL Hct 44.2 (35.3-44.9) % Plt Count 263 (140-400) K/mcL Neutrophils # 5.4 (1.6-8.9) K/mcL BMP 10/06/18 10/06/18 13:51 13:51 Sodium Cancelled 140 Potassium Cancelled 3.9 Chloride Cancelled 107 Carbon Dioxide Cancelled 25 BUN Cancelled 14 Creatinine Cancelled 0.85 Glucose Cancelled 106 H Calcium Cancelled 9.2 Cardiac Enzymes 10/06/18 Range/Units 13:51 Troponin I < 0.03 (< 0.04) ng/mL - Impressions ITS Impressions Chest X-Ray 10/06/18 13:39 IMPRESSION: 1. No active pulmonary disease. D/ / Kalin Martin MD / Kalin Martin MD Interpreting Provider: Kalin Martin MD Cervical Spine CT 10/06/18 13:42 IMPRESSION: No acute abnormality of the cervical spine. Degenerative changes predominate mid and lower cervical spine. D/ / Shimon Cronin / Shimon Cronin Interpreting Provider: Shimon Cronin Head CT 10/06/18 13:42 IMPRESSION: 1.No acute intracranial abnormality. D/ / Kalin Martin MD / Kalin Martin MD Interpreting Provider: Kalin Martin MD - Assessment and plan (1) Chest pain Current Visit: Yes Status: Acute Assessment and plan: Saira Duran is a 48 F w hx obesity, HTN, DM2 c/b gastroparesis, pseudoseizures, pedal edema on lasix, who presents with 3 days vertigo as well as single episode chest pain. Vertigo: BG normal, ecg unremarkable, describes vertigo but some degree of near- syncope with tunnel vision when standing after reaching forward and hx HTN on BP meds - tele overnight - orthostatics - hydration w NS 1L bolus - antivert prn - PT consult for td/mati-hallpike if warranted - consider neuro consult if symptoms not improving Chest pain: ECG and trops unremarkable, [facility] 10/2017 without any angiographic evidence of disease - trend trops - recommend outpatient evaluation/stress if episodes recur PPx: obs FEN: cardiac ADA, no MIVF Lines: PIV Consults: Code: Full Dispo: obs for vertigo, will be homegoing Qualifiers: Ischemic chest pain type: stable angina pectoris Qualified Code(s): I20.8 - Other forms of angina pectoris - Time Spent With Patient Total time spent is greater than 50% in coordination of care (as documented) at patient's floor/unit and/or counseling patient: Greater than 35 minutes - VTE Reasons for not Prescribing Prophylaxis: Treatment not Indicated - Low risk for VTE
[2018-10-06] MEDS ORDERED: Ondansetron 4 MG/2 ML VIAL IVP PRN (18:36)
[2018-10-06] MEDS ORDERED: 0.9 % Sodium Chloride 1,000 ML IVC SCH (18:45)
[2018-10-07] MEDS ORDERED: Dextrose Gel 15 GM/37.5 ML TUBE PO PRN ×4 (05:48→12:24)
[2018-10-07] MEDS ORDERED: D5% in Water 1,000 ML IVC PRN ×2 (05:48→12:24)
[2018-10-07] MEDS ORDERED: *HR* Dextrose 50 % in Water (Syg) 50 ML SYRINGE IVP PRN ×2 (05:48→12:24)
[2018-10-07 05:51] LABS: Hematocrit 42.7 % (35.3-44.9); Hemoglobin 13.9 g/dL (11.5-15.4); Mean Corpuscular HGB Conc 32.6 g/dL (31.6-35.5); Mean Corpuscular Hemoglobin 29.9 pg (28.0-33.3); Mean Corpuscular Volume 91.8 fL (83.0-100.0); Mean Platelet Volume 10.3 fL (9.4-12.4); Platelet Count 295 K/mcL (140-400); Red Blood Count 4.65 M/mcL (3.82-4.97); Red Cell Distribution Width 13.6 % (11.5-14.5)
[2018-10-07 06:05] LABS: Chol/HDL Ratio 4.2 (0-4.9)
[2018-10-07 06:07] LABS: Troponin I < 0.03 ng/mL (< 0.04)
[2018-10-07 06:11] LABS: BUN/Creatinine Ratio 21 (6-26); Blood Urea Nitrogen 16 mg/dL (6-20); Calcium 9.1 mg/dL (8.6-10.3); Carbon Dioxide 28 mEq/L (23-29); Chloride 104 mEq/L (98-107); Glucose 94 mg/dL (70-105); Magnesium 2.2 mg/dL (1.6-2.6); Osmolality,Calculated 291 (280-300); Sodium 140 mEq/L (136-145); eGFR For Non-African Americans > 60 (> 60)
[2018-10-07] MEDS: Insulin LISPRO 300 UNITS/3 ML VIAL SQ SCH ×2 (08:11→11:53)
[2018-10-07] MEDS ORDERED: Nitroglycerin 0.4 MG TAB.SUBL SL PRN (09:39)
[2018-10-07] MEDS ORDERED: NON-FORMULARY MEDICATION 1 EACH EACH (Insulin Glargine,Hum.Rec.Anlog [Basaglar Kwikpen U-1 SQ PRN (09:39)
[2018-10-07] MEDS ORDERED: Acetaminophen 325 MG TABLET PO PRN (10:00)
--- NOTE | 2018-10-07 11:08 | Neurology - Consult Note ---
<Donald Matthews J - Last Filed: 10/07/18 10:51> Date of Encounter: 10/07/18 Time of Encounter: 10:51 Assessment and Plan (1) Vertigo Current Visit: Yes Status: Acute Patient presented with three-day history of dizziness which is worse with mo vement and change in position. She has had BPPV in the past but is presenting for evaluation as she has had a 3 day progression of dizziness. She reports that while doing laundry the room begins to spend with a change in position from squatting to standing. She also notes a darkening of her vision and overall weakness when this is occurring. Neurology has been consulted as there is concern whether this is near syncope versus vertigo. She did endorse a loss of balance and falls with the associated dizziness. CT of the brain and neck are negative for acute abnormalities. She denies any other neurological symptoms such as double vision, tinnitus, facial droop, dysphasia, slurred speech, unilateral weakness or paresthesias. Per my exam she does not have any focal or lateralizing abnormalities. She does have fatigable horizontal nystagmus which would make me think there is a peripheral cause such as BPPV, or vestibular labyrinthitis/neuritis. Additionally, she did note dizziness with changing position from a lying to a seated position and an increase in dizziness going from a seated to a standing position. She reported that the entire room felt like it was spinning but this quickly subsided. I did witness her ambulating around the room and did not find any gait abnormalities, she was able to heel toe walk without difficulty and her Romberg's was negative. Again, these findings do make me think that there is a peripheral cause. However, given the near syncopal episodes with visual darkening and total body weakness with change in position and I also recommend ruling out near syncope with echocardiogram and carotid Doppler studies. I also agree with obtaining an MRI of head to evaluate for acute cause of dizziness. Of note, the patient did report that meclizine is helping. I recommend continuation of meclizine. She will be fine no central cause of dizziness I recommend outpatient vestibular therapy and ENT consultation in the outpatient setting. (2) Near syncope Current Visit: Yes Status: Acute History of Present Illness Chief complaint: Dizziness, near syncope HPI: Ms. Duran is a 48 year old obese female with a PMH of CAD, DM, HTN, LA, vertigo and pseudoseizures. Neurology has been consulted due to concerns for near syncope and dizziness. She presents to [facility] with a three-day history of dizziness. The patient reports that approximately 3 days ago while doing laundry she began to experience intense dizziness, "darkening vision" and reports that the entire room was spinning after a change in position from a squ atting to a standing position. She reports that the dizziness symptoms did somewhat improve with rest but never completely subsided. She notes that over the course of 3 days the dizziness persisted prompting her to seek evaluation in the ED. Per my exam the patient denies any headaches, tinnitus, hearing loss, visual changes, dysarthria, facial droop, dysphasia, unilateral weakness/paresthesias. Additionally she denies any, palpitations or irregular heartbeat, dyspnea. She does admit to some self-limited chest discomfort radiating into her right arm reports that this has subsided. Also, she reports that she had a fall and hit her head on the sink but denies any loss of consciousness denies any seizure like activity. CT of the brain and neck did not reveal any acute abnormalities. Her BMP and CBC are grossly normal. Past Med Surg Social Fam HX - Past Medical History Medical history: asthma, coronary artery disease, diabetes, hypertension, myocardial infarction, seizures Additional medical history: obesity, sleep apnea, thyroid nodules Psychiatric history: anxiety, depression, PTSD - Past Surgical History Surgical History: cholecystectomy, hysterectomy, orthopedic, other Additional surgical history: andreia, left knee - Social History Smoking Status: Never smoker Smokeless Tobacco Status: No Alcohol use: none Drug use: none - Family History Mother Living Status: Still Living Hx Family Cardiac Disorders: Yes (Cardiac disease) Hx Family Endocrine Disorder: Yes (Diabetes) Father Adopted: No Family Member Ethnicity: Non- Living Status: Hx Family Cardiac Disorders: Yes Hx Family Respiratory Disorders: Yes (sleep apnea) Hx Family Cancer: Yes Hx Family Endocrine Disorder: Yes (Diabetes) Hx Family Neuromuscular Disorders: No Hx Family Neurologic Disorders: No Hx Family HEENT Disorders: No Hx Family Autoimmune Disorders: No Medications and Allergies Insulin ASPART [Novolog Flexpen] 8 - 15 unit SQ TID PRN 08/22/16 [History] Insulin Glargine,Hum.rec.anlog [Basaglar Kwikpen U-100] 20 unit SQ HS PRN 03/08/17 [History] Furosemide [Lasix] 40 mg PO DAILY 10/14/17 [History] Losartan/HCTZ [Hyzaar 50-12.5 Tablet] 1 tab PO DAILY 10/14/17 [History] Nitroglycerin 0.4 mg SL Q5MIN PRN 10/14/17 [History] Aspirin 81 mg PO DAILY 10/07/18 [History] Ergocalciferol (VITAMIN D2) [Vitamin D2] 50,000 unit PO WE 10/07/18 [History] Meclizine [Antivert] 25 mg PO TID PRN #10 tablet 10/07/18 [Rx] Metoprolol [Lopressor] 25 mg PO BID 10/07/18 [History] Pantoprazole Sodium [Protonix] 40 mg PO BID 10/07/18 [History] Topiramate [Topamax] 25 mg PO HS 10/07/18 [History] traZODone [TraZODone] 50 mg PO HS 10/07/18 [History] Allergy/AdvReac Type Severity Reaction Status Date / Time acetaminophen [From Tylenol] Allergy See Verified 10/07/18 08:25 Comments azithromycin Allergy Hives Verified 10/07/18 08:25 [From Zithromax Z-Heriberto] [place] And Derivatives Allergy See Verified 10/07/18 08:25 Comments gabapentin Allergy Swelling Verified 10/07/18 08:25 of Lip/Tongue/Throat hydrocodone Allergy Hives Verified 10/07/18 08:25 levofloxacin [From Levaquin] Allergy Anaphylaxis, Verified 10/07/18 08:25 HIVES promethazine [From Phenergan] Allergy Hives Verified 10/07/18 08:25 propoxyphene Allergy Hives Verified 10/07/18 08:25 [From Darvocet-N] Sulfa (Sulfonamide Allergy Hives, RASH Verified 10/07/18 08:25 Antibiotics) duloxetine [From Cymbalta] AdvReac Hallucinating, Verified 10/07/18 08:25 SWELLING lactose AdvReac Abdominal Verified 10/07/18 08:25 Pain lisinopril AdvReac Cough, Verified 10/07/18 08:25 HIVES lovastatin AdvReac Hives Verified 10/07/18 08:25 All Systems: The remainder of the systems were reviewed and are negative Review of Systems: REVIEW OF SYSTEMS GENERAL: Negative for any nausea, fevers, chills, or weight loss, fatigue- - + episode of vomiting with dizziness. NEUROLOGIC: Negative for any double vision, facial asymmetry, dysphagia, dysar thria, hemiparesis, hemisensory deficits, ataxia, paresthesias memory loss, convulsions, attention difficulties, hallucinations, disorientation, speech or language dysfunction, coordination difficulties - - + vertigo which she reports as worse with position change. + Difficulties with balance PSYCH: -agitation/irritability, - - + anxiety HEENT: Negative for any neck stiffness, photophobia, phonophobia, dysphagia, voice changes, sinusitis, rhinitis, tinnitus, decreased hearing, ear discharge or fullness,. - - + Head/neck trauma S/P fall CARDIAC: Negative for any chest pain, dyspnea on exertion, HTN. - - + Chronic peripheral edema GASTROINTESTINAL: Negative for any abdominal pain, nausea, bright red blood per rectum, melena. - - + Vomiting (has not vomited since admission) GENITOURINARY: Negative for any dysuria, hematuria, incontinence. ENDOCRINE: Thyroid trouble, heat/cold intolerance, excessive sweating, thirst, hunger MUSCULOSKELETAL: Joint pain, stiffness, loss of strength, muscle pain/swelling, limitations to motor activity or tolerance Physical Examination - Vital Signs Vital Signs: Initial Vital Signs Temp Pulse Resp BP Pulse Ox 98.3 F 74 16 123/77 99 10/06/18 13:34 10/06/18 13:34 10/06/18 13:34 10/06/18 13:34 10/06/18 13:34 - Exam Exam: Examination: General Examination: *CONSTITUTIONAL: Temp 97.6, HR 67, RR 16 and 94% on room air, BP 106/67 *GENERAL APPEARANCE OF PATIENT obese female who appears generally healthy and well groomed *EYES: pupils equal, round, reactive to light and accommodation, co njunctiva clear without masses or ulcerations, fundi normal. *CARDIOVASCULAR RRR, S1, S2, no mumurs, rubs, or gallops, distal temperature normal, dorsalis pedis pulses normal. + Generalized nonpitting chronic peripheral edema Musculoskeletal: *GAIT AND STATION normal, with normal Romberg testing, no abnormalities such as broad base gait or spasticity. Able to sit at edge of bed with erect posture unassisted. 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 Right arm with give way weakness. *MUSCLE TONE IN THE UPPER AND LOWER EXTREMITIES normal. No abnormal movements, fasciculations or atrophy identified. Neurological: *ORIENTATION to person, place, time and situation *RECURRENT AND REMOTE MEMORY intact; able to recall events from the days prior to admission. *ATTENTION AND CONCENTRATION are normal, she remains focused and does not easily distractible. *LANGUAGE FUNCTION no significant aphasia or dysarthia was noted. *FUND OF KNOWLEDGE aware of current events, past history, vocabulary *MENTAL attention span and concentration normal, has good insight and judgment. Able to follow commands and participate in exam appropriately. *CN II optic fundi were normal, no papilledema noted. *CN III,IV, PERRLA extraocular eye movements were full, and no ptosis noted. + Fatigable Horizontal nystagmus without any obvious quickening *CN V shows normal sensation and jaw opens symmetrically. *CN VII shows normal facial movement symmetrically, upper and lower b ilaterally. *CN VIII shows no significant hearing loss on examination in the office. *CN IX,,X palate elevated symmetrically and normal gag reflex was noted. *CN XI normal strength in the sternocleidomastoid muscles, symmetrical shoulder shrugging. *CN XII tongue protruded in the midline, with normal strength and movement. *SENSORY EXAMINATION pinprick sensation intact, and light touch(vibration sense). *REFLEXES: deep tendon reflexes were diminished symmetrical; history of diabetes, this is most likely an expected finding. No pathological reflexes w ere noted. *CEREBELLAR TESTING normal finger to nose, heel/knee/payton, and tandem walk. *PAIN LEVEL 0/10 Results - Laboratory Findings CBC and BMP: 10/07/18 05:30 10/07/18 05:30 Abnormal lab findings: Abnormal lab results POC Glucose 101 mg/dL (70-99) H 10/06/18 19:33 LDL Cholesterol, Calc 122 mg/dL (0-99) H 10/07/18 05:30 - Diagnostic Findings EKG: image reviewed Chest x-ray: image reviewed (No active pulmonary disease) Additional findings: I personally reviewed the CT imaging findings of both the brain and C-spine and find no acute abnormalities. Consult Discharge Plan - Plan Instructions: Meclizine (By mouth), Vertigo (DC) Additional Instructions: Zoila Treviño 10-11-2018 @ [facility] Referrals: Pedro Luis Denson MD [Primary Care Provider] - 10/14/18 9:45 am () Prescriptions: Meclizine [Antivert] 25 mg PO TID PRN #10 tablet PRN Reason: Dizziness <Teresa Cordoba I - Last Filed: 10/07/18 16:16> Date of Encounter: 10/07/18 Assessment and Plan (1) Vertigo Current Visit: Yes Status: Acute Pt was seen and examined, my medical decision was reviewed with the HOSPITAL ADMINISTRATOR, I agree with the documented findings, disposition and treatment plan, as described except to the extent set forth below. Patient's symptoms history seems to be consistent with positional vertigo. No history or exam findings to be suggestive of posterior circulation stroke or TIA She will be getting an MRI of the brain to exclude any posterior fossa abnormality Suggest IV fluids , as well as symptomatic treatment , may benefit from vestibular rehabilitation as an outpatient Teresa Cordoba MD (2) Near syncope Current Visit: Yes Status: Acute History of Present Illness HPI: Ms. Duran is a 48 year old female All Systems: The remainder of the systems were reviewed and are negative Physical Examination - Vital Signs Vital Signs: Initial Vital Signs Temp Pulse Resp BP Pulse Ox 98.3 F 74 16 123/77 99 10/06/18 13:34 10/06/18 13:34 10/06/18 13:34 10/06/18 13:34 10/06/18 13:34 Results - Laboratory Findings CBC and BMP: 10/07/18 05:30 10/07/18 05:30 Abnormal lab findings: Abnormal lab results LDL Cholesterol, Calc 122 mg/dL (0-99) H 10/07/18 05:30
--- NOTE | 2018-10-07 11:54 | Internal Med Progress Note ---
Hospitalist Progress Note - Encounter Date of Encounter: 10/07/18 Time of Encounter: 11:52 - Subjective Interval History: Patient reported that her vertigo has improved significantly since yesterday. She also reported mild headache. She endorsed history of vertigo but stated it never been so bad. She also has history of migraine and pseudoseizure. She denies vision loss, hearing loss, tinnitus, nausea or vomiting. - Exam Vitals: Temp Pulse Resp BP Pulse Ox 97.8 F 74 16 107/71 97 10/07/18 11:38 10/07/18 11:38 10/07/18 11:38 10/07/18 11:38 10/07/18 11:38 Exam: PHYSICAL EXAMINATION: GENERAL APPEARANCE: The patient is alert, oriented and in no acute distress. HEENT: Head is normocephalic. The sinuses are nontender. Pupils are equal and reactive. The nares are patent. Oropharynx clear without lesions. NECK: Supple without lymphadenopathy. HEART: Regular rate and rhythm. LUNGS: No crackles or wheezes are heard. ABDOMEN: Soft, nontender, nondistended with good bowel sounds heard. Inguinal area is normal. EXTREMITIES: Without cyanosis, clubbing or edema. NEUROLOGICAL: Gross nonfocal. SKIN: Warm and dry without any rash. - Assessment and Plan (1) Vertigo Current Visit: Yes Status: Acute Assessment and Plan: 48-year-old female with history of migraine, pseudoseizure, hypertension, morbid obesity presented with acute onset of vertigo, associated with vision change and headache. Patient does endorse history of BPPV, however, based on the duration of the symptoms, BPPV is less likely. With associated symptoms of vision change and a history of morbid obesity, pseudotumor cerebri he was suspected. Patient does endorse history of migraines, vision change and the vertigo could be the aura of migraine. The patient ibuprofen continue Topmax. MRI of brain was ordered, neurology following, appreciate help. (2) Hypertension Current Visit: No Status: Chronic Assessment and Plan: BP controlled, continue home medications. (3) Morbid obesity Current Visit: No Status: Chronic Assessment and Plan: Weight control and life style modification discussed with patient. (4) Near syncope Current Visit: Yes Status: Acute Assessment and Plan: She will also complain chest pain and a near syncope, echocardiogram was ordered. Orthostatic BP ordered. - Time Spent with Patient Total time spent is greater than 50% in coordination of care (as documented) at patient's floor/unit and/or counseling patient: Greater than 35 minutes Plan of Care Discussed with: patient Internal Medicine: Result - Labs CBC & Chem 7: 10/07/18 05:30 10/07/18 05:30 Labs: Short CBC 10/06/18 10/07/18 Range/Units 13:51 05:30 WBC 8.0 9.2 (4.3-11.1) K/mcL Hgb 14.3 13.9 (11.5-15.4) g/dL Hct 44.2 42.7 (35.3-44.9) % Plt Count 263 295 (140-400) K/mcL Neutrophils # 5.4 (1.6-8.9) K/mcL BMP 10/06/18 10/06/18 10/07/18 13:51 13:51 05:30 Sodium Cancelled 140 140 Potassium Cancelled 3.9 4.0 Chloride Cancelled 107 104 Carbon Dioxide Cancelled 25 28 BUN Cancelled 14 16 Creatinine Cancelled 0.85 0.77 Glucose Cancelled 106 H 94 Calcium Cancelled 9.2 9.1 Cardiac Enzymes 10/06/18 10/07/18 Range/Units 13:51 05:30 Troponin I < 0.03 < 0.03 (< 0.04) ng/mL - ABG Interpretation ABG results: PT/INR, D-dimer PT 11.5 Seconds (9.4-12.1) 10/06/18 13:51 - Impressions Impressions Chest X-Ray 10/06/18 13:39 IMPRESSION: 1. No active pulmonary disease. D/ / Kalin Martin MD / Kalin Martin MD Interpreting Provider: Kalin Matrin MD Cervical Spine CT 10/06/18 13:42 IMPRESSION: No acute abnormality of the cervical spine. Degenerative changes predominate mid and lower cervical spine. D/ / Shimon Cronin / Shimon Cronin Interpreting Provider: Shimon Cornin Head CT 10/06/18 13:42 IMPRESSION: 1.No acute intracranial abnormality. D/ / Kalin Martin MD / Kalin Martin MD Interpreting Provider: Kalin Martin MD - VTE Reasons for not Prescribing Prophylaxis: Treatment not Indicated - Low risk for VTE Consult Discharge Plan - Plan Additional Instructions: Zoila Treviño 10-11-2018 @ [address] [place] [address] Referrals: Pedro Luis Denson MD [Primary Care Provider] - 10/14/18 9:45 am () (2) Hypertension Qualifiers: Hypertension type: essential hypertension Qualified Code(s): I10 - Essential (primary) hypertension
[2018-10-07 15:26] VITALS: BP 146/74
--- NOTE | 2018-10-07 15:52 | Discharge Summary ---
- NOTES TO OUTPATIENT PROVIDER Notes to Outpatient Provider: F/u with ENT within 2 weeks. F/u with olphthalmology within 2 weeks. f/u with PCP within 1 week. Date of Encounter: 10/07/18 Time of Encounter: 15:50 - Discharge Diagnosis (1) Vertigo Priority: Primary Status: Acute (2) Hypertension Priority: Secondary Status: Chronic Qualifiers: Hypertension type: essential hypertension Qualified Code(s): I10 - Essential (primary) hypertension (3) Morbid obesity Priority: Secondary Status: Chronic (4) Near syncope Priority: Primary Status: Acute Hospital course: Ms. Duran is a 48 year old female w hx obesity, HTN, DM2 c/b gastroparesis, pseudoseizures, who presents with 3 days vertigo. Worse with movement, particularly bending forward, but not when rolling over in bed. Occurs when bends down to get laundry or when reaching into fridge. No worsening of baseline nausea but did vomiting once earlier today. Also, today, reached into fridge and felt very dizzy, everything spinning, and she lost balance and bumped her head on the sink while falling. Did not hit it hard, and no LOC before or after. No visual changes in last few days. No hearing changes. Does state that this morning she began to get a bit nervous and then experienced substernal chest pressure while at rest. Of note, patient does endorse significant anxiety at times. Her ROS is dixon-positive but filtered to relevant symptoms in last 3-4 days. In the ED, trops and ECG unremarkable. Admitted for high risk chest pain rule out as well as symptomatic management of vertigo. Pt chest pain was abated and troponin and EKG have no alarming changes. MRI brain was negative for CVA. Neurology was consulted and recommended ENT consult and vestibular rehab. Pt will be discharged today. F/u appointment made. Discharge discussed with: patient Time spent discussing smoking cessation with patient: more than 10 minutes - Time Spent with Patient Total time spent providing and/or coordinating discharge services: Greater than 30 minutes - Discharge Medications Prescriptions: Meclizine [Antivert] 25 mg PO TID PRN #10 tablet PRN Reason: Dizziness Home Medications: Insulin ASPART [Novolog Flexpen] 8 - 15 unit SQ TID PRN 08/22/16 [History] Insulin Glargine,Hum.rec.anlog [Basaglar Kwikpen U-100] 20 unit SQ HS PRN 11/05/16 [History] Furosemide [Lasix] 40 mg PO DAILY 10/14/17 [History] Losartan/HCTZ [Hyzaar 50-12.5 Tablet] 1 tab PO DAILY 10/14/17 [History] Nitroglycerin 0.4 mg SL Q5MIN PRN 10/14/17 [History] Aspirin 81 mg PO DAILY 10/07/18 [History] Ergocalciferol (VITAMIN D2) [Vitamin D2] 50,000 unit PO WE 10/07/18 [History] Meclizine [Antivert] 25 mg PO TID PRN #10 tablet 10/07/18 [Rx] Metoprolol [Lopressor] 25 mg PO BID 10/07/18 [History] Pantoprazole Sodium [Protonix] 40 mg PO BID 10/07/18 [History] Topiramate [Topamax] 25 mg PO HS 10/07/18 [History] traZODone [TraZODone] 50 mg PO HS 10/07/18 [History] Allergies/Adverse Reactions: Allergy/AdvReac Type Severity Reaction Status Date / Time acetaminophen [From Tylenol] Allergy See Verified 10/07/18 08:25 Comments azithromycin Allergy Hives Verified 10/07/18 08:25 [From Zithromax Z-Heriberto] [place] [employer] Allergy See Verified 10/07/18 08:25 Comments gabapentin Allergy Swelling Verified 10/07/18 08:25 of Lip/Tongue/Throat hydrocodone Allergy Hives Verified 10/07/18 08:25 levofloxacin [From Levaquin] Allergy Anaphylaxis, Verified 10/07/18 08:25 HIVES promethazine [From Phenergan] Allergy Hives Verified 10/07/18 08:25 propoxyphene Allergy Hives Verified 10/07/18 08:25 [From Darvocet-N] Sulfa (Sulfonamide Allergy Hives, RASH Verified 10/07/18 08:25 Antibiotics) duloxetine [From Cymbalta] AdvReac Hallucinating, Verified 10/07/18 08:25 SWELLING lactose AdvReac Abdominal Verified 10/07/18 08:25 Pain lisinopril AdvReac Cough, Verified 10/07/18 08:25 HIVES lovastatin AdvReac Hives Verified 10/07/18 08:25 Date of admission: 10/06/18 15:13 Primary care physician: Pedro Luis Denson MD Consults: 10/06/18 17:07 Consult to Physical Therapy [CONS] Routine Comment: Evaluate, develop and implement POC Reason for Consult: vertigo, please perform Gilles/DixHallpike Does patient have active BEDREST order?: No Is patient medically & hemodynamically stable?: Yes 10/07/18 09:30 Consult to Neurology [CONS] Routine Consulting Provider: Neurology [facility] Reason for Consult: brain aneurysm, need to clear for possible anticoagulation. Call Completed: Yes Anticipated date of discharge: 10/07/18 - Constitutional Vitals: Temp Pulse Resp BP Pulse Ox 97.9 F 71 16 146/74 94 10/07/18 15:25 10/07/18 15:25 10/07/18 15:25 10/07/18 15:25 10/07/18 15:25 General appearance: Present: cooperative, A&O X 3, answers questions appropriately Exam: PHYSICAL EXAMINATION: GENERAL APPEARANCE: The patient is alert, oriented and in no acute distress. HEENT: Head is normocephalic. The sinuses are nontender. Pupils are equal and reactive. The nares are patent. Oropharynx clear without lesions. NECK: Supple without lymphadenopathy. HEART: Regular rate and rhythm. LUNGS: No crackles or wheezes are heard. ABDOMEN: Soft, nontender, nondistended with good bowel sounds heard. Inguinal area is normal. EXTREMITIES: Without cyanosis, clubbing or edema. NEUROLOGICAL: Gross nonfocal. SKIN: Warm and dry without any rash. - Patient Status Disposition: Home, Self-Care Condition: Fair Functional capacity at discharge: independent ambulation Overall status at discharge: patient is progressing back to baseline - Discharge Instructions Follow Up With: Pedro Luis Denson MD [Primary Care Provider] - 10/14/18 9:45 am () Additional Instructions: Zoila Treviño 10-11-2018 @ [address] [facility] - Diet and Activity Activity: increase activity as tolerated Diet: advance to your usual diet - VTE Reasons for not Prescribing Prophylaxis: Treatment not Indicated - Low risk for VTE
[2018-10-07] MEDS ORDERED: Insulin LISPRO 300 UNITS/3 ML VIAL SQ SCH (21:00)
[2018-10-07] MEDS ORDERED: traZODone 50 MG TABLET PO SCH (21:00)
[2018-10-07] MEDS ORDERED: Topiramate 25 MG TABLET PO SCH (21:00)
--- NOTE | 2018-10-07 21:12 | Electrocardiograph Report ---
[place] [id number] Test Date: 2018-10-06 Pat Name: Saira Masters Department: EXAM10 Room: 3B52 Gender: F Freight Caller: : [id number] Requested By: Sveta Chappell Order Number: [id number] Reading MD: Samia Duffy Measurements Intervals Jolon Rate: 83 P: 68 MN: 151 QRS: 38 QRSD: 87 T: 54 QT: 457 QTc: 538 Interpretive Statements Sinus rhythm Low voltage, precordial leads Borderline T abnormalities, anterior leads Prolonged QT interval Electronically Signed On 10-07-2018 21:11:27 EST by Samia Duffy
[2018-10-08] MEDS ORDERED: Furosemide 40 MG TABLET PO SCH (09:00)
[2018-10-08] MEDS ORDERED: Losartan/HCTZ 50-12.5 TABLET PO SCH (09:00)
[2018-10-08] MEDS ORDERED: Aspirin 81 MG TAB.CHEW PO SCH (09:00)
[2018-10-08] MEDS ORDERED: Cholecalciferol (D-3) 1,000 UNIT TABLET PO SCH (09:00)
== END 2018-10-07 16:29 | disposition home or self-care (01) ==
LOC: EMEROOARM 13:33 → 3BNU 13:33 → SUATTDRO 15:13 → 3BNU 15:35
PROVIDERS: ADMIT Internal Medicine; ATTEND Internal Medicine